=== PATIENT | male | born 1935 | race Caucasian/White ===

== ENCOUNTER 2017-07-06 18:33 | Emergency (ER) | payer OTHER ==
[~2017-07-06] VITALS: Ht 170.2 cm; Wt 80.0 kg
[~2017-07-06 18:33] MED LIST: ACET1TAB49; ALEN35TA22 PO; CARV3.1238 PO; EZET10TA3 PO; LISI20TA11 PO; METF500T4 PO; PSYL1PAC; RISE5TAB; SIMV40TA3 PO; TAMS-14 PO; TIMO5DRO30 BOTH EYES; VIC PO
[2017-07-06] MEDS ORDERED: SOD CHLORIDE 0.9% 100 ML ONE (18:41)
[2017-07-06] MEDS ORDERED: IODIXANOL LOCM 100 ML BTL ONE (18:41)
[2017-07-06] MEDS ORDERED: IODIXANOL LOCM 50 ML BTL ONE (18:41)
[2017-07-06 18:43] VITALS: Ht 170.2 cm; Wt 80.0 kg
--- NOTE | 2017-07-06 18:51 | RADRPT ---
AMENDMENT: 07/06/2017 6:53:08 PM Jesus Bradshaw MD ADDENDUM: Findings discussed with Dr Flores 07/06/2017 18:50 PROCEDURE: CT Brain without contrast. CLINICAL INDICATION: Focal neurological deficit. TECHNIQUE: A CT of the brain was performed on a multislice detector CT scanner utilizing axial sec tions from the skull base through the vertex without contrast. Images were reviewed on a high-resolu I Had Cancer PACS workstation. Exam CTDlvol = 43 mGy and DLP = 860 mGy-cm. One of the following 3 dose red uction techniques were used: Automated exposure control; adjustment of the mA and/or kV according to patient size; or use of iterative reconstruction technique. COMPARISON: None available FINDINGS: There is age appropriate central and peripheral atrophy. There is no midline shift. There is a mod erate degree of supratentorial periventricular and subcortical white matter hypodensities. There is no definite acute stroke. There is no mass lesion. There is no intracranial hemorrhage or abnorma l extra-axial fluid collection. Visualized paranasal sinuses are clear. IMPRESSION: 1. No acute intracranial abnormality. 2. Nonspecific white matter changes most commonly seen with microvascular ischemic disease. RPTAT: [facility] .Jesus Bradshaw MD, Date Time Electronically viewed and signed by .Jesus Bradshaw MD, on 07/06/2017 18:53 .K/
[2017-07-06] MEDS ORDERED: METO25TA7 PO (18:58)
[2017-07-06] MEDS ORDERED: LISI20TA11 PO (18:58)
[2017-07-06] MEDS ORDERED: HYDR-902 PO (18:59)
[2017-07-06] MEDS ORDERED: TAMS0.4C2 PO (18:59)
[2017-07-06] MEDS ORDERED: ATOR40TA68 PO (19:00)
[2017-07-06] MEDS ORDERED: DORZ10DR22 BOTH EYES (19:01)
--- NOTE | 2017-07-06 19:15 | RADRPT ---
AMENDMENT: 07/06/2017 7:25:22 PM Levy Lofton M.D CLINICAL INDICATION: Neurologic deficit PROCEDURE: CTA head and neck. CLINICAL INDICATION: TECHNIQUE: The study was performed utilizing a GE 64-slice multidetector CT scanner. Direct spiral axial sections were obtained through the neck with the use of 85 cc of Isovue 370 nonionic intraven ous contrast material. Coronal and sagittal as well as maximal intensity projection reformations we re obtained. The images were reviewed on a PACS workstation. The CTDI vol is 46.56 mGy and the DLP i s 860.42 mGy-cm. COMPARISON: No prior studies are available for comparison. FINDINGS: CTA neck: The aortic arch is atherosclerotic an otherwise unremarkable and appearance. The origins of the great vessels are intact. Mild calcific plaque and intimal thickening in the carotid bifurcat ions is seen. In addition, calcified plaque is also seen in the distal right cervical internal wells tid artery. Evaluation of the carotid bifurcation regions revealed no evidence for hemodynamically s ignificant stenosis or occlusion. The vertebral arteries are patent bilaterally. The right vertebral artery is dominant. CTA head: The intracranial internal carotid arteries are atherosclerotic. The bilateral internal car otid arteries are otherwise unremarkable in course and caliber. Occlusion of the distal M1 segment o f the left middle cerebral artery is seen which reconstitutes distally. The bilateral anterior and r ight middle cerebral arteries are normal. The anterior communicating artery is intact. origin of the left posterior cerebral artery is seen. The distal vertebral arteries, basilar artery, basil ar tip, and posterior cerebral arteries are normal. No evidence of an aneurysm or vascular malforma tion is seen. No other occlusion or hemodynamically significant stenosis is seen. The visualized dural venous sinuses are patent. IMPRESSION: 1. Occlusion of the distal M1 segment of the left middle cerebral artery which reconstitutes distal ly. 2. No hemodynamically significant stenosis in the carotid circulation. RPTAT: [facility] Results were discussed with Rhett Flores at 07/06/2017 7:12:14 PM Physician Jessica Date Time Electronically viewed and signed by Physician Jessica on 07/06/2017 19:25 /
[2017-07-06 19:17] LABS: BASOPHILS % 0.3 % (0.0-2.0); EOSINOPHILS # 0.1 10^3/ul (0.0-0.5); EOSINOPHILS % 0.5 % (0.0-7.0); HEMATOCRIT 34.2 % (42.0-52.0); HEMOGLOBIN 11.3 g/dl (14.0-18.0); LYMPHOCYTES % 10.5 % (15.0-51.0); MEAN CORPUSCULAR HEMOGLOBIN 29.7 pg (29.0-33.0); MEAN CORPUSCULAR VOLUME 89.8 fl (82.0-101.0); MEAN PLATELET VOLUME 9.8 fl (7.4-10.4); MONOCYTE # 0.6 10^3/ul (0.3-0.9); NEUTROPHILS % 82.3 % (39.0-77.0); PLATELET COUNT 211 10^3/UL (140-415); RED BLOOD COUNT 3.81 10^6/ul (4.70-6.10); RED CELL DISTRIBUTION WIDTH 14.3 % (11.5-14.5); WHITE BLOOD COUNT 9.2 10^3/ul (4.8-10.8)
--- NOTE | 2017-07-06 19:22 | ERA ---
ER Documentation Chief Complaint Date/Time DATE: 07/06/17 TIME: 19:14 Chief Complaint R sided weakness, last known well 12:30 HPI This is an 81-year-old male who presents to the emergency room with possible stroke. History is mostly provided by EMS and later by his . It appears the last time he was seen normal was around noon or 12:30 PM. The patient's states that that is last time she saw him they were both in separate rooms and when she went to find him she found him on the ground. He was minimally responsive and 911 was called. EMS reports that the patient had been moving the left side of his body but not the right and he was nonverbal. Remainder of HPI is very limited. Accu-Chek in the field was normal. The patient was placed in a c-collar via EMS. No history of anticoagulant use. ROS All systems reviewed and are negative except as per history of present illness. Medications Home Meds Reported Medications Metformin Hcl* (Metformin Hcl*) 850 Mg Tablet, 850 MG PO WITH BREAKFAST DINNE, # 60 TAB 07/06/17 [Iron 27MG] No Conflict Check, 1 TAB PO 07/06/17 Aspirin* (Aspirin* EC) 81 Mg Tablet.dr, 81 MG PO DAILY, TAB 07/06/17 Atorvastatin* (Atorvastatin*) 40 Mg Tablet, 40 MG PO QHS, #30 TAB 07/06/17 Tamsulosin Hcl* (Tamsulosin Hcl*) 0.4 Mg Cap.er.24h, 0.4 MG PO DAILY, CAP 07/06/17 Lisinopril* (Lisinopril*) 20 Mg Tablet, 20 MG PO DAILY, #30 TAB 07/06/17 Metoprolol Succinate* (Toprol XL*) 25 Mg Tab.sr.24h, 25 MG PO DAILY, #30 TAB 07/06/17 Discontinued Reported Medications Dorzolamide-Timolol* (Cosopt*) 2%-0.5% - 10 Ml Soln, 1 DROP BOTH EYES BID, BOTTLE 07/06/17 Hydrocodone/Acetaminophen ([place] 10-325 Tablet) 1 Each Tablet, 1 EACH PO Q4 Y for NEEDED, TAB 07/06/17 Timolol Maleate* (Timoptic*) 5 Ml Drops, 5 ML BOTH EYES DAILY 11/30/11 Ezetimibe* (Zetia*) 10 Mg Tablet, 10 MG PO DAILY 11/30/11 Tamsulosin Hcl* (Flomax*) 0.4 Mg Cap.sr.24h, 0.4 MG PO DAILY 11/30/11 Alendronate Sodium (Fosamax) 35 Mg Tablet, 35 MG PO DAILY 11/30/11 Metformin* (Glucophage*) 500 Mg Tab, 500 MG PO DAILY 11/30/11 Carvedilol* (Coreg*) 3.125 Mg Tablet, 3.125 MG PO DAILY 11/30/11 Lisinopril* (Lisinopril*) 20 Mg Tablet, 20 MG PO DAILY 11/30/11 Simvastatin (Simvastatin) 40 Mg Tablet, 40 MG PO DAILY 11/30/11 Acetaminophen/Hydrocodone (Vicodin) 1 Tab Tab, 1 TAB PO Q4H PRN 11/30/11 Psyllium Seed (Hydrocil Instant) 1 Pkt Packet 01/13/10 Acetaminophen/Phenyltolx Cit (Asa Free Analgesic Tablet) 1 Tab Tablet 01/13/10 Risedronate* (Actonel*) 5 Mg Tablet 01/13/10 Allergies Allergies: Coded Allergies: clopidogrel (Verified Allergy, Mild, 07/06/17) PMhx/Soc History of Surgery: Yes (TRIPLE BYPASS 1998) Anesthesia Reaction: No Hx Neurological Disorder: No Hx Respiratory Disorders: No Hx Cardiac Disorders: Yes (HX OF TRIPLE BYPASS, HTN) Hx Psychiatric Problems: No Hx Miscellaneous Medical Probl: Yes (DM, cholesterol, chronic back pain) Hx Alcohol Use: Yes (occasional wine drinker) Hx Substance Use: No Hx Tobacco Use: Yes (chews on cigars) Smoking Status: Former smoker FmHx Family History: diabetes Physical Exam Vitals Vital Signs Date Time Temp Pulse Resp B/P Pulse Ox O2 Delivery O2 Flow Rate FiO2 07/06/17 20:30 55 20 170/108 98 Room Air 07/06/17 20:00 56 22 145/77 100 Room Air 07/06/17 18:43 64 20 147/74 96 Physical Exam General: Nonverbal, protecting her airway Head: Normocephalic, atraumatic. Eyes: Pupils equally reactive, EOM intact ENT: Moist mucous membranes Neck: Supple, no lymphadenopathy remains in c-collar, no midline tenderness or deformities Respiratory: Lungs clear bilaterally, no distress Cardiovascular: RRR, no murmurs, rubs, or gallops Abdominal: Soft, non-tender, non-distended, no peritoneal signs : Deferred MSK: No evidence of blunt trauma, limited movement of all 4 extremities Neurologic: Patient seems to be following very simple commands he has very limited movement of all 4 extremities but does have slight movement to left upper and lower extremity. He has flaccid paralysis of the right upper and lower extremity. He is nonverbal. Skin: No rash, no evidence of blunt trauma to the head chest or extremities Psych: Normal mood Result Diagram: 07/06/17190407/06/171904 Results 24 hrs Laboratory Tests Test 07/06/17 19:05 07/06/17 19:08 White Blood Count 9.210^3/ul Red Blood Count 3.8110^6/ul Hemoglobin 11.3g/dl Hematocrit 34.2% Mean Corpuscular Volume 89.8fl Mean Corpuscular Hemoglobin 29.7pg Mean Corpuscular Hemoglobin Concent 33.0g/dl Red Cell Distribution Width 14.3% Platelet Count 10535^3/UL Mean Platelet Volume 9.8fl Neutrophils % 82.3% Lymphocytes % 10.5% Monocytes % 6.0% Eosinophils % 0.5% Basophils % 0.3% Nucleated Red Blood Cells % 0.0/100WBC Neutrophils # (Manual) 810^3/ul Lymphocytes # 1.010^3/ul Monocytes # 0.610^3/ul Eosinophils # 0.110^3/ul Basophils # 0.010^3/ul Nucleated Red Blood Cells # 0.010^3/ul Prothrombin Time 13.8Sec Prothrombin Time Ratio 1.1 INR International Normalized Ratio 1.06 Activated Partial Thromboplast Time 29.5Sec Sodium Level 137mmol/L Potassium Level 4.6mmol/L Chloride Level 98mmol/L Carbon Dioxide Level 26mmol/L Anion Gap 18 Blood Urea Nitrogen 22mg/dl Creatinine 1.02mg/dl Glucose Level 141mg/dl Hemoglobin A1c 6.5% Calcium Level 9.2mg/dl Creatine Kinase 70IU/L Creatine Kinase Index 0.8 Creatinine Kinase MB (Mass) 0.58ng/ml Troponin I < 0.012ng/ml Bedside Glucose 144mg/dL Current Medications Medications (Trade) Dose Ordered Sig/Elías Route PRN Reason Start Time Stop Time Status Last Admin Dose Admin IV Flush 10 ml 10 ml STK-MED ONCE .ROUTE 07/06/17 18:41 07/06/17 18:53 DC 07/06/17 19:10 Sodium Chloride (NS) 100 ml @ ud STK-MED ONCE .ROUTE 07/06/17 18:41 07/06/17 18:59 DC 07/06/17 19:10 Iodixanol (Visipaque Locm) 100 ml STK-MED ONCE .ROUTE 07/06/17 18:41 07/06/17 18:59 DC 07/06/17 19:10 Iodixanol (Visipaque Locm) 50 ml STK-MED ONCE .ROUTE 07/06/17 18:41 07/06/17 18:59 DC 07/06/17 19:10 Aspirin (Aspirin) 300 mg ONCE ONCE CO 07/06/17 19:30 07/06/17 19:31 DC 07/06/17 20:26 Procedures/MDM EKG, MONITORS, & DIAGNOSTIC IMAGING: EKG: I reviewed and interpreted a 12-lead EKG. Rhythm: Normal sinus rhythm Ectopy: None Arrhythmia: None Intervals: No abnormalities ST segments: No elevations or depressions T waves: No contiguous inversions Interpretation: No acute cardiac ischemia Chest x-ray: I reviewed and interpreted a 1 view of the chest Mediastinum: No enlargement Cardiac silhouette: No cardiomegaly Airspace: Clear lung kinsey bilaterally without evidence of pneumothorax Bones: No evidence of fracture Interpretation: No acute cardiopulmonary process CT Brain: No evidence of acute intracranial process per radiology wet read CTA Head and Neck: Left MCA occlusion per radiology wet read CT cervical spine: IMPRESSION: 1. No evidence for acute fracture or dislocation. 2. 4 mm disk osteophyte complex at C5-C6, with associated mild appearing bony central canal stenosis. Mild disk osteophyte complexes at other levels through the mid-cervical spine, with minimal appearing central canal stenosis at C6-C7. 3. Uncovertebral hypertrophy from C3-C4 through C7-T1. Multilevel facet hypertrophic changes, moderate to severe and severe as noted from C2-C3 through C4-C5. 4. Resulting foraminal stenosis, with moderate to severe and severe involvement at each level as described from C3-C4 through C6-C7. LAB INTERPRETATION: No thrombocytopenia, normal hemoglobin MEDICAL DECISION MAKING: The patient presents with signs and symptoms very concerning for a left MCA stroke. Alternative diagnosis includes trauma, ACS, syncope and seizure. Upon arrival the patient is protecting his airway and does not require intubation. A stroke code was initiated ER COURSE: Stroke assessment and timing: Onset of symptoms: Approximately 12 or 12:30 PM Arrival to ED: 1832 Stroke code activation: [address] scan: [address]: 1899 Initial neurology evaluation: 1900 Conversation(s) with neurology: 1844, 1915 NIHSS: 18 TPA decision-making: The patient is not a TPA candidate given duration of symptoms greater than 4-1/2 hours Stroke neurologist on-call: Dr. Wall Critical Care Note: Total time: 47 mins Indication/Organ System Threat: Acute neurologic deficit and stroke code activation that requires emergent evaluation and assessment to prevent neurologic compromising collapse. I spent the above amount of critical care time with the patient, not including billable procedures. This included chart review, consultations, repeat bedside evaluations, and titration of appropriate medications to prevent cardiopulmonary or respiratory collapse. Based on the patient's left MCA occlusion window within 8 hours he is a transfer candidate for interventional procedure and possible clot retrieval. The patient does not require intubation prior to transfer as he is protecting his airway I spoke to Dr. Mckeon at [facility]. He agrees with aspirin and will accept the patient. I spoke to him at 1923 CT C-spine negative. C-spine cleared and c-collar removed. Patient with mild interval improvement. I kept the patient and/or family informed of laboratory and diagnostic imaging results throughout the emergency room course. DISPOSITION PLAN: Transfer to [facility] CONSULTATION: Accepting care team and consultations: I discussed the current laboratory data, diagnostic imaging and emergency care provided. Admitting team: Dr. Mckeon Admitting team indication: Insurance directed I was able initially speak to [facility] at 1917 Critical care transport arrival at 2034, departure at 2054 Departure Diagnosis: Primary Impression: Acute ischemic left MCA stroke Condition: Critical SATURNINO GARCIA MD Jul 06, 2017 19:22
--- NOTE | 2017-07-06 19:25 | RADRPT ---
PROCEDURE: CTA head and neck. CLINICAL INDICATION: Neurologic deficit TECHNIQUE: The study was performed utilizing a GE 64-slice multidetector CT scanner. Direct spiral axial sections were obtained through the neck with the use of 85 cc of Isovue 370 nonionic intraven ous contrast material. Coronal and sagittal as well as maximal intensity projection reformations we re obtained. The images were reviewed on a PACS workstation. The CTDI vol is 46.56 mGy and the DLP i s 860.42 mGy-cm. COMPARISON: No prior studies are available for comparison. FINDINGS: CTA neck: The aortic arch is atherosclerotic an otherwise unremarkable and appearance. The origins of the great vessels are intact. Mild calcific plaque and intimal thickening in the carotid bifurcat ions is seen. In addition, calcified plaque is also seen in the distal right cervical internal wells tid artery. Evaluation of the carotid bifurcation regions revealed no evidence for hemodynamically s ignificant stenosis or occlusion. The vertebral arteries are patent bilaterally. The right vertebral artery is dominant. CTA head: The intracranial internal carotid arteries are atherosclerotic. The bilateral internal car otid arteries are otherwise unremarkable in course and caliber. Occlusion of the distal M1 segment o f the left middle cerebral artery is seen which reconstitutes distally. The bilateral anterior and r ight middle cerebral arteries are normal. The anterior communicating artery is intact. origin of the left posterior cerebral artery is seen. The distal vertebral arteries, basilar artery, basil ar tip, and posterior cerebral arteries are normal. No evidence of an aneurysm or vascular malforma tion is seen. No other occlusion or hemodynamically significant stenosis is seen. The visualized dural venous sinuses are patent. IMPRESSION: 1. Occlusion of the distal M1 segment of the left middle cerebral artery which reconstitutes distal ly. 2. No hemodynamically significant stenosis in the carotid circulation. RPTAT: [facility] Results were discussed with Rhett Flores at 07/06/2017 7:12:14 PM Physician Jessica Date Time Electronically viewed and signed by Giacomo Lofton Physician on 07/06/2017 19:24 /
--- NOTE | 2017-07-06 19:28 | RADRPT ---
PROCEDURE: CT Cervical Spine without contrast. CLINICAL INDICATION: Stroke, focal neurologic deficit TECHNIQUE: Multiple axial cuts through the cervical spine with coronal and sagittal reformats were obtained without contrast. The calculated radiation dose measures 471 mGy centimeters. The CTDI juan miguel sures 22 mGy. One or more of the following dose reduction techniques were used: Automated exposure control. Adjustment of the mA and/or kV according to patient size. Use of iterative reconstruction technique. COMPARISON: No prior studies are available for comparison. FINDINGS: There is a normal cervical lordosis. There is no evidence of subluxation. There is normal height of the vertebral bodies. There is moderate to severe disk space narrowing at C5-C6 and C6-C7.. There is no bone destruction or sclerosis. There is no dislocation or acute fracture identified. There is an incomplete posterior C1 arch, which may be developmental.. The atlantoaxial articulation demonstrates mild to moderate degenerative change. There is normal cr aniocervical alignment. C2-3: There is no gross disk abnormality. There is moderate to severe right and moderate left facet hypertrophy. There is no bony central canal stenosis. There is no significant bony foraminal sten osis.. C3-4: There is a mild broad-based disk protrusion, 3 mm, and bilateral uncovertebral hypertrophy. T here is moderate to severe left and mild to moderate right facet hypertrophy. There is no bony cent ral canal stenosis. There is moderate to severe left and moderate right bony foraminal stenosis.. C4-5: There is a mild broad-based disk protrusion, and bilateral uncovertebral hypertrophy. There i s severe right and moderate left facet hypertrophy. There is no bony central canal stenosis. There is severe right and moderate left bony foraminal stenosis.. C5-6: There is a mild to moderate disk osteophyte complex, 4 mm. There is bilateral uncovertebral h ypertrophy. There is moderate bilateral facet hypertrophy. There is mild bony central canal stenos is. There is mild to moderate left and moderate to severe right bony foraminal stenosis.. C6-7: There is a mild disk osteophyte complex and bilateral uncovertebral hypertrophy. There is mi ld to moderate bilateral facet hypertrophy. There is minimal appearing bony central canal stenosis. There is severe left and moderate to severe right bony foraminal stenosis.. C7-T1: There is a minimal disk osteophyte complex and bilateral uncovertebral hypertrophy. There is mild to moderate bilateral facet hypertrophy. There is no bony central canal stenosis. There is m oderate right and mild-moderate left bony foraminal stenosis.. There is no abnormal paravertebral soft tissue mass. IMPRESSION: 1. No evidence for acute fracture or dislocation. 2. 4 mm disk osteophyte complex at C5-C6, with associated mild appearing bony central canal stenosis . Mild disk osteophyte complexes at other levels through the mid-cervical spine, with minimal appea ring central canal stenosis at C6-C7. 3. Uncovertebral hypertrophy from C3-C4 through C7-T1. Multilevel facet hypertrophic changes, mode rate to severe and severe as noted from C2-C3 through C4-C5. 4. Resulting foraminal stenosis, with moderate to severe and severe involvement at each level as de scribed from C3-C4 through C6-C7. RPTAT: [facility] .Rachid Garcia MD, Date Time Electronically viewed and signed by .Rachid Garcia MD, on 07/06/2017 19:27 .T/
[2017-07-06] MEDS ORDERED: ASPIRIN 300 MG SUPP PR ONE (19:30)
[2017-07-06] MEDS ORDERED: ASPI-664 PO (19:38)
[2017-07-06] MEDS ORDERED: IRON 27MG PO (19:39)
[2017-07-06] MEDS ORDERED: METF850T PO (19:41)
[2017-07-06 19:43] LABS: ANION GAP 18 (8-16); BLOOD UREA NITROGEN 22 mg/dl (7-20); CALCIUM 9.2 mg/dl (8.4-10.2); CARBON DIOXIDE 26 mmol/L (21-31); CHLORIDE 98 mmol/L (97-110); CREATINE KINASE 70 IU/L (23-200); CREATININE 1.02 mg/dl (0.61-1.24); GLUCOSE 141 mg/dl (70-220); POTASSIUM 4.6 mmol/L (3.5-5.1); SODIUM 137 mmol/L (135-144)
[2017-07-06 19:54] LABS: INR 1.06; PROTIME 13.8 Sec (12.2-14.2); PT RATIO 1.1
[2017-07-06 19:55] LABS: PARTIAL THROMBOPLASTIN TIME 29.5 Sec (25.0-35.0)
[2017-07-06 19:56] LABS: CK-MB 0.58 ng/ml (0.0-2.4)
[2017-07-06 19:58] LABS: TROPONIN-I < 0.012 ng/ml (0.00-0.12)
--- NOTE | 2017-07-06 20:11 | STROKE ---
Date/Time of Note Date/Time of Note DATE: 07/06/17 TIME: 19:39 Patient Information General Patient location: emergency Arrival Date Age 81 Gender male Weight 80 kg POC Glucose Glucose Result Bedside Glucose - 72 Hours Test 07/06/17 19:08 Bedside Glucose 144mg/dL (70-220) Vital Signs Vital Signs Vital Signs Date Time Temp Pulse Resp B/P Pulse Ox O2 Delivery O2 Flow Rate FiO2 07/06/17 18:43 64 20 147/74 96 Patient History Current Medications Allergies: Coded Allergies: clopidogrel (Verified Allergy, Mild, 07/06/17) Labs Hematology Labs Hematology Test 07/06/17 19:05 White Blood Count 9.210^3/ul (4.8-10.8) Red Blood Count 3.8110^6/ul (4.70-6.10) Hemoglobin 11.3g/dl (14.0-18.0) Hematocrit 34.2% (42.0-52.0) Mean Corpuscular Volume 89.8fl (82.0-101.0) Mean Corpuscular Hemoglobin 29.7pg (29.0-33.0) Mean Corpuscular Hemoglobin Concent 33.0g/dl (32.0-37.0) Red Cell Distribution Width 14.3% (11.5-14.5) Platelet Count 84098^3/UL (140-415) Mean Platelet Volume 9.8fl (7.4-10.4) Neutrophils % 82.3% (39.0-77.0) Lymphocytes % 10.5% (15.0-51.0) Monocytes % 6.0% (0.0-11.0) Eosinophils % 0.5% (0.0-7.0) Basophils % 0.3% (0.0-2.0) Nucleated Red Blood Cells % 0.0/100WBC (0.0-0.0) Neutrophils # (Manual) 810^3/ul (1.7-7.5) Lymphocytes # 1.010^3/ul (0.8-2.9) Monocytes # 0.610^3/ul (0.3-0.9) Eosinophils # 0.110^3/ul (0.0-0.5) Basophils # 0.010^3/ul (0.0-0.1) Nucleated Red Blood Cells # 0.010^3/ul (0.0-0.0) Chemistry Labs Chemistry Test 07/06/17 19:08 Bedside Glucose 144mg/dL (70-220) History & Physical Patient History Notes Pt Hx Reviewed History of Present Illness 81yo M presents with acute onset right sided weakness and inability to speak. Patient was found down and last seen normal at noon. Review of Systems All Other Systems: Reviewed and Negative (patient unable to provide due to clinical condition) NIH Stroke Scale NIH Stroke Scale 1A - Level of Conciousness: 0 - Alert keenly [id number] LOC Questions: 2 - Answers no [id number] - LOC Commands: 2 - Performs neither task2 - Best Gaze: 0 - Normal3 - Visual: 0 - No visual loss4 - Facial Palsy: 1 - Partial [id number] - Motor Arm - Left: 0 - No [id number] - Motor Arm - Right: 1 - Drift 6A - Motor Leg - Left: 4 - No [id number] - Motor Leg - Right: 4 - No movement 7 - Limb Ataxia: 0 - Absent9 - Best Language: 3 - Mute or global aphasia Dysarthria: 2 - [id number] - Extinction and inattentio: 0 - No abnormalityTotal Score: 19 Date/Time Recorded DATE: 07/06/17 TIME: 19:15 Submitted By Marianne Wall t-PA Imaging Review Imaging Reviewed: Yes Date/Time Imaging Reviewed DATE: 07/06/17 TIME: 19:[address] Head- no acute changes; CTA of the head- left M1 occlusion seen, confirmed per radiologist verbal report to ED physician t-PA Administration Recommendation: No Weight 80 kg Recommedation submitted by Marianne Wall Reason t-PA not Recommended outside time window t-PA Not Recommended Date/Time 07/06/17 18:44 Recommendations Impression Diagnosis acute ischemic stroke of the left middle cerebral artery Recommendation 81yo M presents with acute onset right sided weakness and inability to speak. Neurological exam is notable for patient being mute, with mild right facial weakness, right arm drift, and not moving bilateral lower extremities. CT Head is unremarkable, and CTA Head demonstrates left M1 occlusion. I believe the patient is having an acute ischemic stroke of the left middle cerebral artery. Patient is not a TPA candidate due to being outside the time window. I recommend transfer for possible neurointerventional treatment and both aspirin 81mg and Plavix 75mg daily for 3 weeks, then consider switching to a single antiplatelet regimen. I recommend further workup to include MRI Brain without gadolinium and transthoracic echocardiogram. Diagnostic Labs: Lipid Proile Hgb A1C CMP CBC w/Diff Coags Therapy: Physical Therapy Speech Therapy Occupational Therapy Misc. Recommendations: Bedside Swallow Evaluation Pnumatic Compression Devices Stroke Education Smoking Education MARIANNE WALL Jul 06, 2017 19:50
--- NOTE | 2017-07-06 20:14 | RADRPT ---
PROCEDURE: Portable chest x-ray. CLINICAL INDICATION: 81 years of age, male. Possible stroke. TECHNIQUE: Portable AP view of the chest. COMPARISON: Chest x-ray November 30, 2011 FINDINGS: Sternal wires and mediastinal clips from previous cardiac surgery. Atherosclerotic calcification an d tortuosity of the thoracic aorta. Borderline heart size. Mediastinal contours are similar. There is elevation of the left diaphragm with left lung base opacity that is similar to prior exam a nd likely represents scar or chronic atelectasis. Mild right lung base opacity likely represents at electasis. Lungs are otherwise clear. Negative for pleural effusion or pneumothorax. No acute bony abnormality. IMPRESSION: Elevation of the left diaphragm with chronic left lung base opacity that is unchanged from prior exa m is likely due to scarring or chronic atelectasis. Negative for evidence of an acute chest process . RPTAT: HCTS Physician Ana Luisa Date Time Electronically viewed and signed by Kevan Bass Physician on 07/06/2017 20:13 /
[2017-07-06 20:30] VITALS: BP 170/108; PULSE 55; RESP 20
== END 2017-07-06 20:55 | disposition short-term general hospital (02) ==
LOC: E/R 18:33
DX: I63.412 Cerebral infarction due to embolism of left middle cerebral artery (principal); I10 Essential (primary) hypertension; E11.9 Type 2 diabetes mellitus without complications; Z79.82 Long term (current) use of aspirin; Z79.84 Long term (current) use of oral hypoglycemic drugs; Z87.891 Personal history of nicotine dependence
CPT/HCPCS: 36415; 70450; 70496; 70498; 71010; 72125; 80048; 82550; 82553; 82962; 83036; 84484; 85025; 85610; 85730; 93005; 99291; Q9967

== ENCOUNTER 2017-08-12 14:57 | Inpatient (IN) | END 2017-08-18 19:45 | DRG 872 | DX: A41.59 Other Gram-negative sepsis (principal); N17.9 Acute kidney failure, unspecified; I82.403 Acute embolism and thrombosis of unspecified deep veins of lower extremity, bilateral; E11.51 Type 2 diabetes mellitus with diabetic peripheral angiopathy without gangrene; I48.92 Unspecified atrial flutter; I42.9 Cardiomyopathy, unspecified; B35.6 Tinea cruris; I69.351 Hemiplegia and hemiparesis following cerebral infarction affecting right dominant side; I48.91 Unspecified atrial fibrillation; L03.319 Cellulitis of trunk, unspecified; J98.11 Atelectasis; I69.391 Dysphagia following cerebral infarction; I69.320 Aphasia following cerebral infarction; E87.5 Hyperkalemia; Z79.01 Long term (current) use of anticoagulants; I25.10 Atherosclerotic heart disease of native coronary artery without angina pectoris; Z93.1 Gastrostomy status; Z95.1 Presence of aortocoronary bypass graft; Z87.891 Personal history of nicotine dependence; D64.9 Anemia, unspecified; N40.1 Benign prostatic hyperplasia with lower urinary tract symptoms; R33.8 Other retention of urine; Z16.24 Resistance to multiple antibiotics; Z22.322 Carrier or suspected carrier of Methicillin resistant Staphylococcus aureus ==

== ENCOUNTER 2018-01-06 19:43 | Emergency (ER) | END 2018-01-07 03:36 | disposition home or self-care (01) ==

== ENCOUNTER 2018-05-28 02:41 | Emergency (ER) | END 2018-05-28 06:54 | disposition home or self-care (01) ==

== ENCOUNTER 2018-06-04 08:32 | Inpatient (IN) | END 2018-06-04 17:35 | disposition home health service (06) | DRG 699 ==

== ENCOUNTER 2018-06-08 14:14 | Emergency (ER) | END 2018-06-08 15:46 | disposition home or self-care (01) ==

== ENCOUNTER 2018-08-30 13:16 | Inpatient (IN) | END 2018-09-11 18:45 | DRG 698 ==

== ENCOUNTER → 2018-09-22 | Emergency (ER) | END | disposition home or self-care (01) ==

== ENCOUNTER 2018-09-28 12:08 | Observation (INO) | END 2018-09-29 18:40 | disposition home health service (06) ==

== ENCOUNTER 2018-11-28 17:56 | Observation (INO) | payer OTHER ==
[~2018-11-28] VITALS: Ht 167.6 cm; Wt 62.0 kg
[~2018-11-28 17:56] MED LIST changes: -ACET1TAB49; +ALBU2.5V3 NEB; -ALEN35TA22 PO; +AMIO200T4 PO; +AMOX1TAB10 PO; +APIX5TAB PO; +ATOR40TA68 PO; +BUPR-75 PO; -CARV3.1238 PO; +CARV3.1260 PO; +CHOL100062 PO; +CITA40TA6 PO; +DOCU50LI23 PO; -EZET10TA3 PO; +FOLI-49 PO; +HYDR-4011 PO; +HYDR2TAB3 PO; +LACT1CAP47 PO; +LISI-471 PO; -LISI20TA11 PO; +LORA10TA3 PO; +MELA5TAB21 PO; -METF500T4 PO; +MYCO250C3 PO; +OMEP20CA16 PO; -PSYL1PAC; -RISE5TAB; +SENN8.8S5 PO; -SIMV40TA3 PO; -TAMS-14 PO; -TIMO5DRO30 BOTH EYES; -VIC PO
--- NOTE | 2018-11-28 18:24 | ERD ---
ER Documentation Chief Complaint Chief Complaint blood in urine since yesterday after moreno being changed HPI 83-year-old male history of atrial fibrillation on Eliquis, CVA with residual deficit, coronary artery disease, congestive heart failure, hyperlipidemia, psoriasis and chronic urinary retention status post suprapubic catheter placement presents to the ED with gross hematuria and abdominal pain. After his regularly scheduled, monthly, suprapubic catheter replacement by home health yesterday he developed bloody drainage into his Moreno bag and over the last several hours has been having worsening, severe, sharp and nonradiating lower abdominal pain. No nausea, vomiting, diarrhea or constipation. No relieving or exacerbating factors. Denies chest pain, palpitations, shortness of breath or leg pain. No fevers or chills. ROS All systems reviewed and are negative except as per history of present illness. Medications Home Meds Active Scripts Mupirocin* (Bactroban*) 2% -22 Gram Oint...g., 1 APPLIC TOP BID for 14 Days Prov:DOMINIC CERDA 11/30/18 Ertapenem Sodium (Invanz) 1 Gm Vial.port, 1 GM IV Q24H for 13 Days Next outpatient dose due 12/01/18 Prov:DOMINIC CERDA 11/30/18 Lactobacillus Acidophilus (Probiotic) 1 Each Capsule, 1 CAP PO BID for 30 Days, CAP Prov:DOMINIC CERDA 11/30/18 Reported Medications Mycophenolate Mofetil* (Cellcept*) 250 Mg Capsule, 250 MG PO BID, CAP 08/30/18 Albuterol Sulfate* (Albuterol Sulfate* Neb) 0.083%-3 Ml Neb, 2.5 MG NEB BID PRN for WHEEZING AND SOB, #30 VIAL 08/30/18 Folic Acid* (Folic Acid*) 1 Mg Tablet, 1 MG PO DAILY, TAB 06/08/18 Cholecalciferol* (Vitamin D3*) 1,000 Unit Tablet, 1000 UNIT PO DAILY, TAB 06/08/18 Bupropion Hcl* (Wellbutrin XL*) 150 Mg Tab.sr.24h, 150 MG PO NEEDED, TAB.SA 06/08/18 Melatonin (Melatonin) 5 Mg Tab.ir.er, 5 MG PO QHS 06/08/18 Sennosides* (Senna* Liq) 8.8 Mg/5 Ml Syrup, 5 ML PO QAM, BOTTLE 06/08/18 Docusate Sodium* (Docusate Sodium* Liq) 50 Mg/5 Ml Liquid, 50 MG PO QAM, ML 06/08/18 Hydrocodone/Acetaminophen ([place] 5-325 Tablet) 1 Each Tablet, 1 EACH PO NEEDED, TAB 06/08/18 Loratadine* (Loratadine*) 10 Mg Tablet, 10 MG PO DAILY, #30 TAB 06/08/18 Atorvastatin* (Atorvastatin*) 40 Mg Tablet, 40 MG PO QHS, #30 TAB 06/08/18 Apixaban* (Eliquis*) 5 Mg Tablet, 5 MG PO BID, TAB 06/08/18 Carvedilol* (Carvedilol*) 3.125 Mg Tablet, 3.125 MG PO BID, #60 TAB HOLD PULSE<60 06/08/18 Amiodarone Hcl* (Amiodarone Hcl*) 200 Mg Tablet, 200 MG PO DAILY, #30 TAB 06/08/18 Citalopram Hydrobromide* (Citalopram Hydrobromide*) 40 Mg Tablet, 40 MG PO DAILY, #30 TAB 06/08/18 Omeprazole* (Omeprazole*) 20 Mg Capsule.dr, 20 MG PO DAILY, #30 CAP 06/08/18 Discontinued Reported Medications Hydromorphone Hcl (Dilaudid) 2 Mg Tab, 2 MG PO DAILY PRN for SEVERE PAIN LEVEL 7-08/30/18 Lisinopril* (Lisinopril*) 20 Mg Tablet, 20 MG PO DAILY, #30 TAB 08/30/18 Discontinued Scripts Amoxicillin/Potassium Clav (Amox-Clav 875-125 mg Tablet) 875-125 mg Tab, 875 MG PO BID for 9 Days, #18 TAB Prov:AKSHAT SELF MD 09/29/18 Allergies Allergies: Coded Allergies: clopidogrel (Unverified Allergy, Mild, 09/28/18) PMhx/Soc Reviewed in chart. As per HPI. Lives with family. History of Surgery: Yes (BY PASS ,SUPRAPUBIC CATH PLACEMENT) Anesthesia Reaction: No Hx Neurological Disorder: No Hx Respiratory Disorders: No Hx Cardiac Disorders: Yes (MT BY PASS SURGERY) Hx Psychiatric Problems: No Hx Miscellaneous Medical Probl: Yes (cva , a-fib , cva , posoruasis cad, s/p CABG hematuria .) Hx Alcohol Use: No Hx Substance Use: No Hx Tobacco Use: No FmHx No family history relevant to presenting complaint Physical Exam Vitals Vital Signs Date Temp Pulse Resp B/P (MAP) Pulse Ox O2 O2 Flow FiO2 Time Delivery Rate 11/28/18 98.8 83 18 92/62 (72) 96 20:07 11/28/18 98.8 42 18 115/68 92 18:15 (84) Physical Exam Const: Elderly, severe distress due to pain. Head: Atraumatic Eyes: Normal Conjunctiva ENT: Normal External Ears, Nose and Mouth. Neck: Full range of motion. No JVD. Resp: Breath sounds are equal and clear to auscultation bilaterally Cardio: Regular rate and rhythm, no murmurs Abd: Soft, diffuse, generalized tenderness that localizes to the suprapubic area. Mild distention. Bowel sounds are present. No rebound or guarding. : Moreno catheter bag with dark blood. Suprapubic catheter site without erythema, induration or drainage Skin: No petechiae or rashes Back: No midline or flank tenderness Ext: No cyanosis, or edema Neur: Awake and alert Psych: Anxious but not depressed. Result Diagram: 11/30/18 0536 11/30/18 0536 Results 24 hrs Laboratory Tests Test 11/28/18 18:18 11/28/18 20:04 White Blood Count 9.6 10^3/ul Red Blood Count 3.32 10^6/ul Hemoglobin 9.3 g/dl Hematocrit 29.1 % Mean Corpuscular Volume 87.7 fl Mean Corpuscular Hemoglobin 28.0 pg Mean Corpuscular Hemoglobin Concent 32.0 g/dl Red Cell Distribution Width 17.4 % Platelet Count 330 10^3/UL Mean Platelet Volume 9.6 fl Immature Granulocytes % 0.500 % Neutrophils % 79.2 % Lymphocytes % 11.0 % Monocytes % 7.7 % Eosinophils % 1.3 % Basophils % 0.3 % Nucleated Red Blood Cells % 0.0 /100WBC Immature Granulocytes # 0.050 10^3/ul Neutrophils # 7.6 10^3/ul Lymphocytes # 1.1 10^3/ul Monocytes # 0.7 10^3/ul Eosinophils # 0.1 10^3/ul Basophils # 0.0 10^3/ul Nucleated Red Blood Cells # 0.0 10^3/ul Sodium Level 136 mmol/L Potassium Level 5.3 mmol/L Chloride Level 99 mmol/L Carbon Dioxide Level 28 mmol/L Anion Gap 9 Blood Urea Nitrogen 30 mg/dl Creatinine 1.23 mg/dl Est Glomerular Filtrat Rate mL/min mL/min Glucose Level 94 mg/dl Calcium Level 9.3 mg/dl Urine Color RED Urine Clarity CLOUDY Urine pH 7.0 Urine Specific [place] 1.011 Urine Ketones TRACE mg/dL Urine Nitrite NEGATIVE mg/dL Urine Bilirubin NEGATIVE mg/dL Urine Urobilinogen NEGATIVE mg/dL Urine Leukocyte Esterase 1+ Priti/ul Urine Microscopic RBC > 182 /HPF Urine Microscopic WBC > 182 /HPF Urine Bacteria FEW /HPF Urine Hemoglobin 3+ mg/dL Urine Glucose NEGATIVE mg/dL Urine Total Protein 3+ mg/dl Current Medications Medications Dose Sig/Elías Start Time Status Last (Trade) Ordered Route PRN Stop Time Admin Dose Reason Admin Fentanyl 25 mcg ONCE ONCE 11/28/18 DC 11/28/18 (Sublimaze) IV 19:00 18:47 11/28/18 19:01 Fentanyl 25 mcg ONCE ONCE 11/28/18 DC 11/28/18 (Sublimaze) IV 19:30 19:18 11/28/18 19:31 Procedures/MDM DOCUMENTS REVIEWED: ED nurse, prior ED, prior records MEDICAL DECISION MAKIN-year-old male history of atrial fibrillation on Eliquis, CVA with residual deficit, coronary artery disease, congestive heart failure, hyperlipidemia, psoriasis and chronic urinary retention requiring suprapubic catheter presents to the ED with gross hematuria and abdominal pain CBC to evaluate for leukocytosis, anemia and thrombocytopenia is significant for H/H of 9.3/29.1 which is actually improved from 8.3/27.1 on 09/29. Chemistry significant for elevated BUN/creatinine consistent with prior results and borderline hyperkalemia but no other electrolyte abnormalities. Urinalysis is grossly bloody with numerous RBCs and WBCs. Rocephin 1 g IV piggyback pending culture. Patient presents with gross hematuria complicated by anticoagulation with malfunctioning suprapubic catheter resulting in urinary retention. Patient required multiple doses of IV opiates in the ED for pain management. Patient was evaluated in the ED by Dr. Bejjani and suprapubic catheter was changed. Recommends admission for antibiotics pending cultures and observation for further bleeding. Abdominal pain secondary to urinary retention and urinary tract infection, improved significantly post suprapubic catheter change. No rebound, guarding, signs of peritonitis or an acute intra-abdominal process including but not limited to appendicitis, diverticulitis, abdominal aortic aneu rysm and bowel obstruction hence advanced imaging is not indicated. No criteria for systemic inflammatory response syndrome or sepsis. Patient's initial heart rate of 42 bpm in triage is noted and likely an error as in the ED his initial heart rate was 82. Admit to med/surg for further evaluation and management. CALLS/CONSULTS: Time: 18:35, Dr. Trevino. Will consult in the emergency departm ent. PATIENT CARE TRANSITIONED: Time: 20:48, Dr. Mario. Counseled patient and family regarding diagnosis, diagnostic results and plan for admission. Departure Diagnosis: Primary Impression: Hematuria Hematuria type: gross Qualified Codes: R31.0 - Gross hematuria Additional Impressions: Acute urinary retention Suprapubic abdominal pain History of CVA with residual deficit Chronic atrial fibrillation Chronic kidney disease Chronic kidney disease stage: unspecified stage Qualified Codes: N18.9 - Chronic kidney disease, unspecified Anticoagulated Anemia Anemia type: unspecified type Qualified Codes: D64.9 - Anemia, unspecified Condition: Serious JUDITH PATTERSON MD Nov 28, 2018 18:24
[2018-11-28] MEDS ORDERED: FENTAnyl 50 MCG/ML VIAL IV ONE ×2 (19:00→19:30)
--- NOTE | 2018-11-28 20:12 | CONS ---
Date/Time of Note Date/Time of Note DATE: 11/28/18 TIME: 19:59 Assessment/Plan Assessment/Plan Assessment/Plan 83-year-old male well-known to me from before. Has a very large prostate and urinary retention and contractures of the lower extremities. Prior catheterization through his urethra was complicated multiple times by having the balloon of the catheter inflated into the urethra. Therefore it was decided to put the suprapubic tube for him. The suprapubic tube was placed in and I did change it the first time and then had the home health nurse change it for him monthly. It appears the nurse changed it yesterday and he was having some bleeding and today he was in severe pain so his brought him to the emergency room. I tried first to irrigate the catheter that he had but the fluid that I pushed in I was not able to aspirated back. Therefore I decided to change the suprapubic tube and as soon as I pulled the tube out urine came out of the bladder. I then prepped the suprapubic area and inserted a new 22 [place] 10 cc balloon North I irrigated the new catheter and the return was blood-tinged. Therefore I would recommend to keep him for observation overnight and then if the urine is clear in the morning he may be discharged. Result Diagram: 11/28/188 11/28/188 Results 24hrs Laboratory Tests Test 11/28/18 18:18 White Blood Count 9.6 # Red Blood Count 3.32 L Hemoglobin 9.3 L Hematocrit 29.1 L Mean Corpuscular Volume 87.7 Mean Corpuscular Hemoglobin 28.0 L Mean Corpuscular Hemoglobin Concent 32.0 Red Cell Distribution Width 17.4 H Platelet Count 330 # Mean Platelet Volume 9.6 Immature Granulocytes % 0.500 H Neutrophils % 79.2 H Lymphocytes % 11.0 L Monocytes % 7.7 Eosinophils % 1.3 Basophils % 0.3 Nucleated Red Blood Cells % 0.0 Immature Granulocytes # 0.050 H Neutrophils # 7.6 H Lymphocytes # 1.1 Monocytes # 0.7 Eosinophils # 0.1 Basophils # 0.0 Nucleated Red Blood Cells # 0.0 Sodium Level 136 Potassium Level 5.3 H Chloride Level 99 Carbon Dioxide Level 28 Anion Gap 9 Blood Urea Nitrogen 30 H Creatinine 1.23 Est Glomerular Filtrat Rate mL/min Glucose Level 94 Calcium Level 9.3 Consultation Date/Type/Reason Admit Date/Time Date of Consultation: Nov 28, 2018 Type of Consult Urology Reason for Consultation Gross hematuria Requesting Provider: JUDITH PATTERSON MD Hx of Present Illness 83-year-old male well-known to me from before. Has a very large prostate and urinary retention and contractures of the lower extremities. Prior catheterization through his urethra was complicated multiple times by having the balloon of the catheter inflated into the urethra. Therefore it was decided to put the suprapubic tube for him. The suprapubic tube was placed in and I did change it the first time and then had the home health nurse change it for him monthly. It appears the nurse changed it yesterday and he was having some bleeding and today he was in severe pain so his brought him to the emergency room. Constitutional: other (Complains of pain) Eyes: no complaints ENT: no complaints Respiratory: No shortness of breath Cardiovascular: No chest pain Gastrointestinal: pain Genitourinary: hematuria Musculoskeletal: restricted range of motion (Contracture of lower extremities) Skin: no complaints Neurologic: focal-weakness (Right hemiplegia) Endocrine: no complaints Past Medical History Medical History: coronary artery disease, diabetes, high cholesterol, h ypertension, urinary tract infection, other (Deep vein thrombosis, peripheral vascular disease and history of stroke with right hemiplegia) Allergies: Coded Allergies: clopidogrel (Unverified Allergy, Mild, 09/28/18) Past Surgical History Past Surgical Hx: coronary bypass surgery, other (Insertion of suprapubic tube) Social History Alcohol Use: none Smoking Status: Former smoker Exam/Review of Systems Vital Signs Vitals Vital Signs Date Temp Pulse Resp B/P (MAP) Pulse Ox O2 O2 Flow FiO2 Time Delivery Rate 11/28/18 98.8 42 18 115/68 92 18:15 (84) Exam Constitutional: alert Psych: other (Complains of pain) Head: normocephalic Eyes: nl conjunctiva Neck: supple, non-tender Respiratory: normal air movement; No wheezing Cardiovascular: No jugular venous distention (JVD) Gastrointestinal: soft, other (Suprapubic pain) Genitourinary - Male: other (Suprapubic tube that is draining bloody urine.) Extremities: other (Right hemiplegia and contractures of the lower extremities); No calf tenderness Neurological: focal weakness (Right hemiplegia) MARTINA BOOKER MD Nov 28, 2018 20:10
[2018-11-28] MEDS ORDERED: ONDANSETRON 4 MG INJ IV PRN (21:30)
[2018-11-28] MEDS ORDERED: ACETAMINOPHEN 325 MG TAB PO PRN (21:30)
[2018-11-28 22:40] VITALS: BP 102/62; PULSE 94; RESP 18
[2018-11-28 23:28] VITALS: Ht 167.6 cm; Wt 62.0 kg
[2018-11-29] MEDS ORDERED: ACETAMINOPHEN 325 MG TAB PO PRN
[2018-11-29] MEDS ORDERED: ONDANSETRON 4 MG INJ IV PRN
[2018-11-29] MEDS: SOD CHLORIDE 0.9% 1,000 ML IV SCH ×2 (00:41→08:41)
[2018-11-29] MEDS: CEFTRIAXONE 1 GM/50 ML (PMX) 50 ML IVPB SCH (00:41)
--- NOTE | 2018-11-29 01:46 | QN ---
Documentation Comment H&P dict a/p 1. gu: hematuria since recent suprapubic change, monitor, hold eliquis (b) ?uti, cont rocephin 2. gi: abdo pain, unclear etiology, await ct and abdo us. cont rocephin, flagyl and vanco 3. cards: a fib, rate controlled, monitor (b) borderline bp, increase ivf, 4. old cva DAWOOD MCKEE MD Nov 29, 2018 01:46
[2018-11-29] MEDS ORDERED: VANCOMYCIN IV PER PHARMACY XX SCH (02:00)
[2018-11-29] MEDS ORDERED: metroNIDAZOLE 500 MG/NS (PMX) 100 ML IVPB SCH (02:00)
[2018-11-29 02:04] VITALS: BP 92/54; PULSE 76; RESP 18
[2018-11-29] MEDS: metroNIDAZOLE 500 MG/NS (PMX) 100 ML IVPB SCH ×3 (02:16→21:31)
[2018-11-29] MEDS ORDERED: VANCOMYCIN HCL 1.25 GM in SOD CHLORIDE 0.9% 250 ML IVPB SCH (03:00)
--- NOTE | 2018-11-29 05:10 | HP ---
DATE OF ADMISSION: 11/28/2018 CHIEF COMPLAINT: Abdominal pain. HISTORY OF PRESENTING ILLNESS: Mr. Atwood was referred to the emergency room at [facility] by his home health nurse. He was making a routinely scheduled visit to [facility] suprapubic cathete r. However he after having the catheter exchanges has been having hematuria since that time and was referred to the emergency room. On arrival here, he is complaining of abdominal pain, but is not abl e to give much in the way of additional history. PAST MEDICAL HISTORY: Significant for: 1. Urinary retention requiring suprapubic catheter. 2. Atrial fibrillation. 3. Old stroke. 4. Hypertension. 5. Hyperlipidemia. MEDICATIONS AN OUTPATIENT: Include: 1. CellCept 250 mg b.i.d. 2. Melatonin 5 mg at nighttime. 3. Folate 1 mg daily. 4. Vitamin D 1000 units daily. 5. Senna 5 mL q.a.m. 6. Omeprazole 20 mg daily. 7. Lactobacillus. 8. Colace. 9. [place] 5/325 one tablet every 6 hours as needed. 10. Celexa 40 mg daily. 11. Wellbutrin 150 mg daily. 12. Lisinopril 20 mg daily. 13. Coreg 3.125 mg b.i.d. 14. Lipitor 40 mg daily. 15. Amiodarone 200 mg daily. 16. Eliquis 5 mg b.i.d. 17. Augmentin. 18. Albuterol. 19. Claritin. ALLERGIES: LISTED PLAVIX. SOCIAL HISTORY: The patient lives at home in [place]. Has the assistance of caregiver. Denies tob acco, alcohol or illicit drug use. FAMILY HISTORY: Noncontributory. REVIEW OF SYSTEMS: Unobtainable secondary to patient's status. PHYSICAL EXAMINATION: VITAL SIGNS: Blood pressure of 102/62, pulse rate 94, respirations 18, temperature is 98.3. GENERAL: Pleasant man in no acute distress, answers questions, but only briefly. HEENT: Normocephalic, atraumatic without evident scleral icterus, perioral cyanosis. Mucous membran es are dry. NECK: Soft and supple without masses. No evidence of jugular venous distention or carotid bruits. CHEST: Clear to auscultation and percussion anteriorly. HEART: Regular rate and rhythm, , no added sounds. ABDOMEN: Soft, tender in all quadrants especially the right upper and right lower. Note is made of a suprapubic catheter. EXTREMITIES: Without clubbing, cyanosis or edema. SKIN: Without rashes. NEUROLOGIC: Grossly intact. LABORATORY STUDIES: Reveal a hemoglobin of 9.3 g/dL, white count 9600, platelets of 330,000. Sodium 136, potassium 5.3, chloride 99, bicarbonate 28, BUN 30, creatinine 1.23, glucose 94. UA shows grea ter than 182 red cells and white cells. ASSESSMENT AND PLAN: 1. Genitourinary: The patient with hematuria related to recent suprapubic catheter exchange. Hold Eliquis. Treat for probable urinary tract infection. I appreciate the assistance of urology. Urina ry retention secondary to prostatic enlargement, plus or minus urinary infection. 2. Gastrointestinal: The patient with right upper and lower quadrant abdominal pain. We will obtai n ultrasound and CT scan to rule out surgical causes of pain. Continue with antibiotics at this time . 3. Cardiac: The patient with atrial fibrillation, rate controlled. Continue amiodarone. Borderlin e blood pressure. We will hold lisinopril and Coreg. Give IV fluids. Old stroke. Dictated By: DAWOOD MCKEE MD RER/NTS Conf#: [id number] DID#: [id number]
[2018-11-29] MEDS ORDERED: PANTOPRAZOLE (EC) 40 MG TAB PO SCH (06:00)
--- NOTE | 2018-11-29 07:57 | CONS ---
Date/Time of Note Date/Time of Note DATE: 11/29/18 TIME: 07:49 Consult Date/Type/Reason Admit Date/Time Nov 28, 2018 at 21:07 Initial Consult Date 11/28/18 Type of Consultation: Urology Reason for Consultation Gross hematuria Requesting Provider: JUDITH PATTERSON MD Subjective Patient is awake and comfortable. He denies any pain. Objective Vital Signs Date Temp Pulse Resp B/P (MAP) Pulse Ox O2 O2 Flow FiO2 Time Delivery Rate 11/29/18 97.6 76 18 92/54 (67) 95 02:04 11/28/18 Room Air 22:29 Intake and Output 11/28/18 11/28/18 11/29/18 1515:00 23:00 07:00 IntakeIntake Total 400.000 ml OutputOutput Total 700 ml BalanceBalance -300.000 ml Exam The suprapubic tube is draining well and the urine is clear yellow. He screams of pain when he is moved. The dressing around the suprapubic tube is intact and dry Results/Medications Result Diagram: 11/29/18 0511 11/29/18 0511 Results 24 hrs Laboratory Tests Test 11/28/18 18:18 11/28/18 20:04 11/29/18 05:11 White Blood Count 9.6 # 8.2 Red Blood Count 3.32 L 3.22 L Hemoglobin 9.3 L 8.9 L Hematocrit 29.1 L 28.7 L Mean Corpuscular Volume 87.7 89.1 Mean Corpuscular Hemoglobin 28.0 L 27.6 L Mean Corpuscular Hemoglobin Concent 32.0 31.0 L Red Cell Distribution Width 17.4 H 17.4 H Platelet Count 330 # 318 Mean Platelet Volume 9.6 9.5 Immature Granulocytes % 0.500 H 0.700 H Neutrophils % 79.2 H 73.2 Lymphocytes % 11.0 L 15.3 Monocytes % 7.7 8.8 Eosinophils % 1.3 1.6 Basophils % 0.3 0.4 Nucleated Red Blood Cells % 0.0 0.0 Immature Granulocytes # 0.050 H 0.060 H Neutrophils # 7.6 H 6.0 Lymphocytes # 1.1 1.3 Monocytes # 0.7 0.7 Eosinophils # 0.1 0.1 Basophils # 0.0 0.0 Nucleated Red Blood Cells # 0.0 0.0 Sodium Level 136 133 L Potassium Level 5.3 H 4.9 Chloride Level 99 99 Carbon Dioxide Level 28 28 Anion Gap 9 6 Blood Urea Nitrogen 30 H 28 H Creatinine 1.23 1.33 H Est Glomerular Filtrat Rate mL/min Glucose Level 94 92 Calcium Level 9.3 9.1 Urine Color RED Urine Clarity CLOUDY A Urine pH 7.0 Urine Specific [place] 1.011 Urine Ketones TRACE A Urine Nitrite NEGATIVE Urine Bilirubin NEGATIVE Urine Urobilinogen NEGATIVE Urine Leukocyte Esterase 1+ H Urine Microscopic RBC > 182 H Urine Microscopic WBC > 182 H Urine Bacteria FEW A Urine Hemoglobin 3+ H Urine Glucose NEGATIVE Urine Total Protein 3+ H Medications Current Medications Ondansetron HCl (Zofran Inj) 4 mg BRIDGE ORDER PRN IV NAUSEA AND/OR VOMITING; Start 11/28/18 at 21:30; Stop 11/29/18 at 21:29 Acetaminophen (Tylenol Tab) 650 mg ER BRIDGE PRN PO MILD PAIN(1-3)OR ELEVATED TEMP; Start 11/28/18 at 21:30; Stop 11/29/18 at 21:29 Ceftriaxone Sodium 50 ml @ 100 mls/hr Q24H IVPB Last administered on 11/29/18at 00:41; Admin Dose 100 MLS/HR; Start 11/29/18 at 00:00 Acetaminophen (Tylenol Tab) 650 mg Q6H PRN PO MILD PAIN(1-3)OR ELEVATED TEMP; Start 11/29/18 at 00:00 Ondansetron HCl (Zofran Inj) 4 mg Q4H PRN IV NAUSEA AND/OR VOMITING; Start 11/29/18 at 00:00 Morphine Sulfate (morphine SULFATE (PF)) 2 mg Q2H PRN IV SEVERE PAIN LEVEL 7- 10; Start 11/29/18 at 00:00 Sodium Chloride 1,000 ml @ 125 mls/hr Q8H IV Last administered on 11/29/18at 00:41; Admin Dose 75 MLS/HR; Start 11/29/18 at 00:00 Amiodarone HCl (Cordarone) 200 mg DAILY PO ; Start 11/29/18 at 09:00 Atorvastatin Calcium (Lipitor) 40 mg QHS PO ; Start 11/29/18 at 21:00 Cholecalciferol (Vitamin D) 1,000 unit DAILY PO ; Start 11/29/18 at 09:00 Citalopram Hydrobromide (Celexa) 40 mg DAILY PO ; Start 11/29/18 at 09:00 Docusate Sodium (Colace Liquid Cup) 50 mg QAM PO ; Start 11/29/18 at 09:00 Folic Acid (Folic Acid) 1 mg DAILY PO ; Start 11/29/18 at 09:00 Loratadine (Claritin) 10 mg DAILY PO ; Start 11/29/18 at 09:00 Mycophenolate Mofetil (Cellcept) 250 mg BID PO ; Start 11/29/18 at 09:00 Lactobacillus Acidophilus/ Rhamnosus (Culturelle) 1 cap DAILY PO ; Start 11/29/18 at 09:00 Pantoprazole (Protonix Tab) 40 mg DAILY@06 PO ; Start 11/29/18 at 06:00 [place] Extract (Senna Syrup) 176 mg DAILY PO ; Start 11/29/18 at 09:00 Vancomycin HCl (Vanco Iv Per Pharmacy) VANCOMYCIN PER PHARMACY PER PROTOCOL XX ; Start 11/29/18 at 02:00 Metronidazole 100 ml @ 100 mls/hr Q8 IVPB Last administered on 11/29/18at 02:16; Admin Dose 100 MLS/HR; Start 11/29/18 at 02:09 Vancomycin/Sodium Chloride 250 ml @ 125 mls/hr Q12H IVPB ; Start 11/29/18 at 16:00 Assessment/Plan Chief Complaint/Hosp Course 83-year-old male well-known to me from before. Has a very large prostate and urinary retention and contractures of the lower extremities. Prior catheterization through his urethra was complicated multiple times by having the balloon of the catheter inflated into the urethra. Therefore it was decided to put the suprapubic tube for him. The suprapubic tube was placed in and I did change it the first time and then had the home health nurse change it for him monthly. It appears the nurse changed it on 11/27/2018 and he was having some bleeding and on 11/28/2018 he was in severe pain so his brought him to the emergency room. I irrigated the catheter but that did not irrigate well, therefore I decided to change the suprapubic tube and as soon as I pulled the tube out urine came out of the bladder. I then inserted a new 22 [place] 10 cc balloon North ,I irrigated the new catheter and the return was blood-tinged. Patient was kept in the hospital for observation. This morning the urine from the suprapubic tube is clear. I ordered a urine culture. Urologically he may be discharged. MARTINA BOOKER MD Nov 29, 2018 07:57
[2018-11-29 08:00] VITALS: BP 103/58; PULSE 73; RESP 17
[2018-11-29] MEDS: morphine SULFATE/PF (2 MG/2 ML) SYG IV PRN ×2 (08:09→16:51)
[2018-11-29] MEDS: LACTOBACILLUS RHAMNOSUS CAP PO SCH (08:53)
[2018-11-29] MEDS: FOLIC ACID 1 MG TAB PO SCH (08:53)
[2018-11-29] MEDS: CITALOPRAM 20 MG TAB PO SCH (08:53)
[2018-11-29] MEDS: CHOLECALCIFEROL 1,000 UNIT TAB PO SCH (08:54)
[2018-11-29] MEDS: LORATADINE 10 MG TAB PO SCH (08:54)
[2018-11-29] MEDS: AMIODARONE 200 MG TAB PO SCH (08:55)
[2018-11-29] MEDS ORDERED: MYCOPHENOLATE 250 MG CAP PO SCH (09:00)
[2018-11-29] MEDS: DOCUSATE SODIUM 10 MG/ML (10ML CUP) PO SCH (09:00)
[2018-11-29] MEDS: SENNA LEAF EXTRACT 176 MG/5 ML SYRUP PO SCH (09:12)
--- NOTE | 2018-11-29 13:30 | PN ---
Date/Time of Note Date/Time of Note DATE: 11/29/18 TIME: 13:11 Assessment/Plan VTE Prophylaxis Risk score (from Ns)>0 risk: 8 SCD applied (from Ns): Yes Pharmacological prophylaxis: NA/contraindicated Pharm contraindication: bleeding (hematuria ) Lines/Catheters IV Catheter Type (from [facility] Peripheral IV Urinary Cath still in place: Yes Reason Cath still needed: urinary retention (suprapubic catheter in place ) Assessment/Plan Assessment/Plan 83-year-old male with: 1. Hematuria, patient had a change of his suprapubic catheter the day previous, appreciate assistance from urology, suprapubic catheter was changed again yesterday, no signs of hematuria currently with good urine flow. Appreciate recommendations from Dr. Trevino, urine culture with gram-negative rods, awaiting final sensitivities for antibiotic adjustment prior to discharge. 2. Gram-negative nikhil UTI, currently on Rocephin. Follow-up final cultures for antibiotic adjustment. Unclear why patient is on Flagyl. Abdominal ultrasound and a CT abdomen pelvis with no acute kidney issues. Discontinue vancomycin 3. 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 Patient had a modified barium swallow followed by an esophagogram on his last admission, it is established that he does have a esophageal spasms and recommendation is for PPI and mechanical soft diet, small portions and nectar thick liquid. 5. Atrial fibrillation, chronic, will clarify with urology if okay to resume Eliquis for anticoagulation. Hematuria resolved so far. Rate controlled, continue current medications. 6. Coronary artery disease, continue current medications, beta-blockers to be resumed if blood pressure tolerates and patient has been taken off antiplatelet given previous episodes of hematuria and the fact that he is on Eliquis in setting of A. fib. 7. Psoriasis. Continue Cellcept for now. Atarax prn for itching. states that patient has a cream that was prescribed for him, she is to bring the medication in so we can use it for the patient while inpatient. 8. GERD: Continue PPIs 9. Congestive heart failure, diastolic dysfunction, EF 60% on echocardiogram 08/2018. Careful with IV fluids, will discontinue IV fluids as of today based on small pleural effusion seen on CAT scan already. Monitor volume status, diuresis if needed. 10. Acute kidney injury, hyperkalemia on admission, known BPH and obstructive uropathy, status post suprapubic catheter placement. Repeat BMP later this afternoon, potassium level already trending down to 4.9. Monitor renal function while treating UTI. D/C vancomycin Prophylaxis: PPI for GI prophylaxis, resuming Eliquis for stroke prophylaxis setting of atrial fibrillation. Disposition: Follow-up on urine cultures, adjust antibiotics, discharge planning will be for home with a 24-hour caregiver per patient's request hopefully in the next 24 hours. Result Diagram: 11/29/1811 11/29/1811 Results 24hrs Laboratory Tests Test 11/28/18 18:18 11/28/18 20:04 11/29/18 05:11 White Blood Count 9.6 # 8.2 Red Blood Count 3.32 L 3.22 L Hemoglobin 9.3 L 8.9 L Hematocrit 29.1 L 28.7 L Mean Corpuscular Volume 87.7 89.1 Mean Corpuscular Hemoglobin 28.0 L 27.6 L Mean Corpuscular Hemoglobin Concent 32.0 31.0 L Red Cell Distribution Width 17.4 H 17.4 H Platelet Count 330 # 318 Mean Platelet Volume 9.6 9.5 Immature Granulocytes % 0.500 H 0.700 H Neutrophils % 79.2 H 73.2 Lymphocytes % 11.0 L 15.3 Monocytes % 7.7 8.8 Eosinophils % 1.3 1.6 Basophils % 0.3 0.4 Nucleated Red Blood Cells % 0.0 0.0 Immature Granulocytes # 0.050 H 0.060 H Neutrophils # 7.6 H 6.0 Lymphocytes # 1.1 1.3 Monocytes # 0.7 0.7 Eosinophils # 0.1 0.1 Basophils # 0.0 0.0 Nucleated Red Blood Cells # 0.0 0.0 Sodium Level 136 133 L Potassium Level 5.3 H 4.9 Chloride Level 99 99 Carbon Dioxide Level 28 28 Anion Gap 9 6 Blood Urea Nitrogen 30 H 28 H Creatinine 1.23 1.33 H Est Glomerular Filtrat Rate mL/min Glucose Level 94 92 Calcium Level 9.3 9.1 Urine Color RED Urine Clarity CLOUDY A Urine pH 7.0 Urine Specific [place] 1.011 Urine Ketones TRACE A Urine Nitrite NEGATIVE Urine Bilirubin NEGATIVE Urine Urobilinogen NEGATIVE Urine Leukocyte Esterase 1+ H Urine Microscopic RBC > 182 H Urine Microscopic WBC > 182 H Urine Bacteria FEW A Urine Hemoglobin 3+ H Urine Glucose NEGATIVE Urine Total Protein 3+ H Subjective 24 Hr Interval Summary Free Text/Dictation Patient is awake and alert, he is at baseline currently, mental status is much clearer. He is on room air. IV fluids have been adjusted. Status post suprapubic catheter change and resolved hematuria as of this morning. Urine culture from yesterday positive with gram-negative rods, antibiotic adjusted. Exam/Review of Systems Vital Signs Vitals Vital Signs Date Temp Pulse Resp B/P (MAP) Pulse Ox O2 O2 Flow FiO2 Time Delivery Rate 11/29/18 98.7 73 17 103/58 92 08:00 (73) 11/28/18 Room Air 22:29 Intake and Output 11/28/18 11/28/18 11/29/18 1515:00 23:00 07:00 IntakeIntake Total 400.000 ml OutputOutput Total 700 ml BalanceBalance -300.000 ml Exam Constitutional: alert, oriented, other (Patient with expressive aphasia [facility].) Respiratory: clear to auscultation, normal air movement Cardiovascular: irregular rhythm (Chronic A. fib.) Gastrointestinal: soft, non-tender Musculoskeletal: nl extremities to inspection Extremities: normal pulses, other (No edema, clubbing or cyanosis) Neurological: MARINE RIGGER II-XII intact, other (Expressive aphasia, some episodes of confusion at times but so far mental status stable. Known mild dysphagia) Medications Medications Current Medications Ceftriaxone Sodium 50 ml @ 100 mls/hr Q24H IVPB Last administered on 11/29/18at 00:41; Admin Dose 100 MLS/HR; Start 11/29/18 at 00:00 Acetaminophen (Tylenol Tab) 650 mg Q6H PRN PO MILD PAIN(1-3)OR ELEVATED TEMP; Start 11/29/18 at 00:00 Ondansetron HCl (Zofran Inj) 4 mg Q4H PRN IV NAUSEA AND/OR VOMITING; Start 11/29/18 at 00:00 Morphine Sulfate (morphine SULFATE (PF)) 2 mg Q2H PRN IV SEVERE PAIN LEVEL 7-10 Last administered on 11/29/18at 08:09; Admin Dose 2 MG; Start 11/29/18 at 00:00 Sodium Chloride 1,000 ml @ 75 mls/hr [id number] IV Last administered on 11/29/18 00:41; Admin Dose 75 MLS/HR; Start 11/29/18 at 00:00 Amiodarone HCl (Cordarone) 200 mg DAILY PO Last administered on 11/29/18 08:55; Admin Dose 200 MG; Start 11/29/18 at 09:00 Atorvastatin Calcium (Lipitor) 40 mg QHS PO ; Start 11/29/18 at 21:00 Cholecalciferol (Vitamin D) 1,000 unit DAILY PO Last administered on 11/29/18 08:54; Admin Dose 1,000 UNIT; Start 11/29/18 at 09:00 Citalopram Hydrobromide (Celexa) 40 mg DAILY PO Last administered on 11/29/18 08:53; Admin Dose 40 MG; Start 11/29/18 at 09:00 Docusate Sodium (Colace Liquid Cup) 50 mg QAM PO ; Start 11/29/18 at 09:00 Folic Acid (Folic Acid) 1 mg DAILY PO Last administered on 11/29/18 08:53; Admin Dose 1 MG; Start 11/29/18 at 09:00 Loratadine (Claritin) 10 mg DAILY PO Last administered on 11/29/18 08:54; A dmin Dose 10 MG; Start 11/29/18 at 09:00 Mycophenolate Mofetil (Cellcept) 250 mg BID PO Last administered on 11/29/18 08:54; Admin Dose 250 MG; Start 11/29/18 at 09:00 Lactobacillus Acidophilus/ Rhamnosus (Culturelle) 1 cap DAILY PO Last administered on 11/29/18 08:53; Admin Dose 1 CAP; Start 11/29/18 at 09:00 [place] Extract (Senna Syrup) 176 mg DAILY PO Last administered on 11/29/18 09:12; Admin Dose 176 MG; Start 11/29/18 at 09:00 Metronidazole 100 ml @ 100 mls/hr Q8 IVPB Last administered on 11/29/18 02:16; Admin Dose 100 MLS/HR; Start 11/29/18 at 02:09 Pantoprazole (Protonix Tab) 40 mg BID@0600,1800 PO ; Start 11/29/18 at 18:00 Imaging Imaging PROCEDURE: CT Abdomen and pelvis without contrast. CLINICAL INDICATION: Right lower quadrant abdominal pain TECHNIQUE: CT scan of the abdomen and pelvis without contrast was performed on a multidetector high-resolution CT scan. . Coronal and sagittal reformatted images were obtained from the axial source images. Standard CT scan of the abdomen pelvis without contrast protocols were performed. The total exam CTDI equals 12.14 mGy and the total exam DLP equals 756.5 mGy-cm. One or more of the following dose reduction techniques were used: - Automated exposure control. - Adjustment of the mA and/or kV according to patient size. Use of iterative reconstruction technique. Dicom images are available COMPARISON: Ultrasound earlier same day. CT abdomen pelvis 09/28/2018 FINDINGS: Again noted is a suprapubic catheter with nondependent air adjacent to the cat heter likely iatrogenic. The urinary bladder is otherwise unremarkable. The kidneys are normal in size without calcified calculi or hydronephrosis bilaterally. No change in the bilateral renal cysts. No evidence ureteral calcified calculi. Moderate dilated left ureter throughout its entire course wi thout obstructing lesion demonstrated unchanged from previous study. Severely enlarged prostate gland. Correlation with PSA levels may be helpful. Again noted are diverticular changes throughout the colon most pronounced proximal descending and distal descending colon without diverticulitis. Moderate stool burden throughout the colon which is otherwise unremarkable. Small hiatal hernia. Stomach otherwise unremarkable. Small bowel unremarkable. Appendix not visualized however no CT evidence of appendicitis. No evidence of intra-abdominal free air, free fluid, abscesses or lymphadenopathy. Cholelithiasis and sludge in otherwise unremarkable gallbladder. No biliary ductal dilation. Normal size liver with superior right lobe and left lobe liver cysts. No other hepatic lesions. Spleen pancreas and adrenal glands unremarkable. Extensive atherosclerotic vascular disease of the aorta and iliac arteries without aneurysm. Coronary artery disease. Tiny fat containing left inguinal and umbilical hernias without herniated hour strangulation. Bilateral small pleural effusions larger on the right. Bibasilar subsegmental atelectasis and parenchymal scarring. Tiny calcified granuloma right lung base. Degenerative changes of the lower thoracic and lumbar spine and both hips wit hout acute osseous findings are osteoblastic/osteolytic lesions. IMPRESSION: 1. No significant change. 2. Suprapubic catheter in good position with nondependent air within the inner bladder likely iatrogenic. 3. No change bilateral renal cysts. No calcified urinary calculi or obstructive uropathy. 4. Severe enlarged prostate gland. Correlation with PSA levels may be helpful. 5. Colonic diverticulosis without CT evidence of diverticulitis. 6. Small hiatal hernia. 7. Liver cysts. 8. Bilateral small pleural effusions larger on the right. Bibasilar subsegmental atelectasis/parenchymal scarring. RPTAT:AAJJ Physician Harmeet Date Time Electronically viewed and signed by Physician Harmeet on 11/29/2018 03:53 Echocardiogram Report Patient Name: DAWOOD TADEO Gender: Male Date: 1935 Study Date: 05-Sep-2018 Lithographic Photographer Apprentice: Alecia [facility] [place] Location: 518-A Ref. Physician: RANJIT CERDA Quality: Adequate Procedures: Transthoracic echocardiogram with complete 2D, M-Mode, and doppler examination. Indications: Elevated Troponin, Hx of CAD. 2D/M Mode Doppler Measurement Value Normal Ranges Measurement Value Normal Ranges LVIDd 2D 2.9 3.5 - 5.6 cm HENRY Vmax 1.5 cm2 LVIDs 2D 2.3 2.1 - 4.1 cm HENRY VTI 1.3 cm2 FS 2D 22.4 % AV Mean [place] 1.6 m/sec LVPWd 2D 1.5 0.6 - 1.1 cm AV Mean PG 11.0 mmHg IVSd 2D 1.5 0.6 - 1.1 cm AV Peak [place] 2.1 m/sec IVS/LVPW 2D 1.0 AV Peak PG 18.0 mmHg AoR Diam 2D 3.1 2.0 - 3.7 cm AV VTI 59.5 cm LA/Ao 2D 1 0 - 1 LVOT Peak [place] 0.9 m/sec EDV 2D 25.4 cm3 LVOT Peak PG 3.0 mmHg ESV 2D 11.9 cm3 MV E Peak [place] 1.0 m/sec LA Dimen 2D 4.5 2.3 - 4.0 cm MV A Peak [place] 0.8 m/sec LVOT Area 3.5 cm2 MV E/A 1.4 MV Decel Time 176 msec MV E/A 1.4 TR Peak [place] 3.1 m/sec TR Peak PG 38.0 mmHg RVSP 46.0 mmHg Findings Left Ventricle: Normal left ventricular systolic function. Normal left ventricular cavity size. Moderate concentric left ventricular hypertrophy. Ejection fraction is visually estimated at 60 %. Tissue Doppler/Mitral Doppler indices are consistent with pseudonormalization with mildly elevated left atrial pressure (Stage II diastolic dysfunction). Right Ventricle: Normal right ventricular size. Normal right ventricular systolic function. Left Atrium: There is mild enlargement of left atrium. Right Atrium: The right atrium is normal in size. Mitral Valve: Mild mitral leaflet calcification. Mild mitral annular calcification. Mild mitral valve regurgitation. Aortic Valve: Aortic sclerosis without significant stenosis. Aortic cusps appear moderately calcified. Trace aortic valve regurgitation. Tricuspid Valve: Normal appearance of the tricuspid valve. Estimated peak PA systolic pressure 46 mmHg. There is mild tricuspid regurgitation. Pulmonic Valve: Normal pulmonic valve appearance. There is trace pulmonic regurgitation. Pericardium: Normal pericardium with no significant pericardial effusion. Aorta: Normal aortic root. IVC: Dilated IVC with respiratory collapse consistent with elevated right atrial pressure. Conclusions Normal left ventricular systolic function. Normal left ventricular cavity size. Moderate concentric left ventricular hypertrophy. Ejection fraction is visually estimated at 60 %. Tissue Doppler/Mitral Doppler indices are consistent with pseudonormalization with mildly elevated left atrial pressure (Stage II diastolic dysfunction). Normal right ventricular size. Normal right ventricular systolic function. There is mild enlargement of left atrium. The right atrium is normal in size. Mild mitral valve regurgitation. Aortic sclerosis without significant stenosis. Trace aortic valve regurgitation. Estimated peak PA systolic pressure 46 mmHg. There is mild tricuspid regurgitation. Normal pericardium with no significant pericardial effusion. Electronically Signed By: Jesus Bergeron 05-Sep-2018 18:09:07 -0700 DOMINIC CERDA Nov 29, 2018 13:22
[2018-11-29 14:34] VITALS: BP 112/69; PULSE 69; RESP 17
[2018-11-29] MEDS ORDERED: VANCOMYCIN 750 MG (PMX) 250 ML IVPB SCH (16:00)
[2018-11-29] MEDS: PANTOPRAZOLE (EC) 40 MG TAB PO SCH (18:16)
[2018-11-29 20:15] VITALS: BP 97/53; PULSE 72; RESP 18
[2018-11-29] MEDS ORDERED: ATORVASTATIN 40 MG TAB PO SCH (21:00)
[2018-11-29] MEDS: MYCOPHENOLATE MOFETIL 250 MG PO SCH (21:04)
[2018-11-29] MEDS: APIXABAN 5 MG TABLET PO SCH (21:04)
[2018-11-30] MEDS: CEFTRIAXONE 1 GM/50 ML (PMX) 50 ML IVPB SCH (00:15)
[2018-11-30 02:00] VITALS: BP 101/57; PULSE 79; RESP 18
[2018-11-30] MEDS ORDERED: VANCOMYCIN 750 MG (PMX) 250 ML IVPB SCH (03:00)
[2018-11-30] MEDS: MYCOPHENOLATE MOFETIL 250 MG PO SCH (05:36)
[2018-11-30] MEDS: metroNIDAZOLE 500 MG/NS (PMX) 100 ML IVPB SCH (05:36)
[2018-11-30] MEDS: PANTOPRAZOLE (EC) 40 MG TAB PO SCH (05:36)
[2018-11-30 07:51] VITALS: BP 110/66; PULSE 73; RESP 16
[2018-11-30] MEDS: DOCUSATE SODIUM 10 MG/ML (10ML CUP) PO SCH (08:20)
[2018-11-30] MEDS: LACTOBACILLUS RHAMNOSUS CAP PO SCH (08:23)
[2018-11-30] MEDS: LORATADINE 10 MG TAB PO SCH (08:23)
[2018-11-30] MEDS: FOLIC ACID 1 MG TAB PO SCH (08:23)
[2018-11-30] MEDS: CHOLECALCIFEROL 1,000 UNIT TAB PO SCH (08:23)
[2018-11-30] MEDS: AMIODARONE 200 MG TAB PO SCH (08:24)
[2018-11-30] MEDS: CITALOPRAM 20 MG TAB PO SCH (08:26)
[2018-11-30] MEDS: APIXABAN 5 MG TABLET PO SCH (08:27)
[2018-11-30] MEDS: SENNA LEAF EXTRACT 176 MG/5 ML SYRUP PO SCH (09:00)
[2018-11-30] MEDS: morphine SULFATE/PF (2 MG/2 ML) SYG IV PRN (10:01)
--- NOTE | 2018-11-30 10:21 | PN ---
Date/Time of Note Date/Time of Note DATE: 11/30/18 TIME: 10:14 Assessment/Plan VTE Prophylaxis Risk score (from Ns)>0 risk: 8 SCD applied (from Ns): Yes Pharmacological prophylaxis: apixaban Lines/Catheters IV Catheter Type (from Nrsg): Peripheral IV Urinary Cath still in place: Yes Reason Cath still needed: urinary retention (Suprapubic catheter in place) Assessment/Plan Assessment/Plan 83-year-old male with: 1. Hematuria, resolved, patient had a change of his suprapubic catheter on 11/28. Appreciate assistance from urology, no signs of hematuria currently with good urine flow. Appreciate recommendations from Dr. Trevino, Urine culture with ESBL E. coli, antibiotic changed to ertapenem. 2. ESBL UTI, antibiotics switched to ertapenem, midline being placed for plan outpatient antibiotics either at home with home health versus residential f acility. 3. 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 Patient had a modified barium swallow followed by an esophagogram on his last admission, it is established that he does have a esophageal spasms and recommendation is for PPI and mechanical soft diet, small portions and nectar thick liquid. 5. Atrial fibrillation, chronic, back on Eliquis for anticoagulation. Hematuria resolved so far and not recurring. Rate controlled, continue current medications. 6. Coronary artery disease, continue current medications. 7. Psoriasis. Continue Cellcept for now. Atarax prn for itching. states th at patient has a cream that was prescribed for him, she is to bring the medication in so we can use it for the patient while inpatient. 8. GERD: Continue PPIs 9. Congestive heart failure, diastolic dysfunction, EF 60% on echocardiogram 08/2018. 10. Acute kidney injury, hyperkalemia on admission, known BPH and obstructive uropathy, status post suprapubic catheter placement. Renal function stable, hyperkalemia resolved. D/C vancomycin Prophylaxis: PPI for GI prophylaxis, resuming Eliquis for stroke prophylaxis setting of atrial fibrillation. Disposition: Patient to remain on contact isolation for MRSA naris and ESBL UTI. Midline to be placed for IV antibiotics as outpatient either at home with home health versus residential facility. If patient to go to residential facility isolation bed will be requested otherwise home with home health and 24- hour caregiver. Result Diagram: 11/30/18 0536 11/30/18 0536 Results 24hrs Laboratory Tests Test 11/29/18 15:58 11/30/18 05:36 Sodium Level 133 L 135 Potassium Level 4.5 4.4 Chloride Level 100 101 Carbon Dioxide Level 25 26 Anion Gap 8 8 Blood Urea Nitrogen 28 H 28 H Creatinine 1.39 H 1.34 H Est Glomerular Filtrat Rate mL/min Glucose Level 148 # 106 # Calcium Level 9.1 9.3 White Blood Count 6.7 Red Blood Count 3.22 L Hemoglobin 9.0 L Hematocrit 28.7 L Mean Corpuscular Volume 89.1 Mean Corpuscular Hemoglobin 28.0 L Mean Corpuscular Hemoglobin Concent 31.4 L Red Cell Distribution Width 17.2 H Platelet Count 276 Mean Platelet Volume 9.6 Immature Granulocytes % 0.800 H Neutrophils % 77.3 H Lymphocytes % 11.1 L Monocytes % 8.1 Eosinophils % 2.4 Basophils % 0.3 Nucleated Red Blood Cells % 0.0 Immature Granulocytes # 0.050 H Neutrophils # 5.1 Lymphocytes # 0.7 L Monocytes # 0.5 Eosinophils # 0.2 Basophils # 0.0 Nucleated Red Blood Cells # 0.0 Magnesium Level 1.8 Subjective 24 Hr Interval Summary Free Text/Dictation Patient remained hemodynamically stable, respiratory status stable. No signs of hematuria with Eliquis resumed yesterday. Urine culture back with nonsignificant colony count of staph aureus which is likely contamination or colonization and significant to urinary tract infection with ESBL E. coli sensitive to carb dependence. Patient will be switched to ertapenem, plan to place a midline and discharge planning to home with home health per 's request versus placement to residential facility on contact isolation. Exam/Review of Systems Vital Signs Vitals Vital Signs Date Temp Pulse Resp B/P (MAP) Pulse Ox O2 O2 Flow FiO2 Time Delivery Rate 11/30/18 97.2 73 16 110/66 97 07:51 (81) 11/29/18 Room Air 14:34 Intake and Output 11/29/18 11/29/18 11/30/18 1515:00 23:00 07:00 IntakeIntake Total 100 ml 500 ml 150 ml OutputOutput Total 600 ml 1300 ml BalanceBalance 100 ml -100 ml -1150 ml Exam Constitutional: alert, oriented (x2), frail, other (Mostly bedbound) Respiratory: clear to auscultation, normal air movement Cardiovascular: irregular rhythm (Chronic atrial fibrillation) Gastrointestinal: soft, non-tender Musculoskeletal: nl extremities to inspection Extremities: normal pulses, other (No edema, clubbing or cyanosis) Neurological: MANAGER TECHNOLOGY II-XII intact, nl mental status (At baseline some confusion), other (Mostly generalized weakness, expressive aphasia chronic, some mild dysphagia chronic.) Medications Medications Current Medications Acetaminophen (Tylenol Tab) 650 mg Q6H PRN PO MILD PAIN(1-3)OR ELEVATED TEMP; Start 11/29/18 at 00:00 Ondansetron HCl (Zofran Inj) 4 mg Q4H PRN IV NAUSEA AND/OR VOMITING; Start 11/29/18 at 00:00 Morphine Sulfate (morphine SULFATE (PF)) 2 mg Q2H PRN IV SEVERE PAIN LEVEL 7-10 Last administered on 11/30/18 10:01; Admin Dose 2 MG; Start 11/29/18 at 00:00 Amiodarone HCl (Cordarone) 200 mg DAILY PO Last administered on 11/30/18 08:24; Admin Dose 200 MG; Start 11/29/18 at 09:00 Atorvastatin Calcium (Lipitor) 40 mg QHS PO Last administered on 11/29/18 21:04; Admin Dose 40 MG; Start 11/29/18 at 21:00 Cholecalciferol (Vitamin D) 1,000 unit DAILY PO Last administered on 11/30/18 08:23; Admin Dose 1,000 UNIT; Start 11/29/18 at 09:00 Citalopram Hydrobromide (Celexa) 40 mg DAILY PO Last administered on 11/30/18 08:26; Admin Dose 40 MG; Start 11/29/18 at 09:00 Docusate Sodium (Colace Liquid Cup) 50 mg QAM PO Last administered on 11/30/18 08:20; Admin Dose 50 MG; Start 11/29/18 at 09:00 Folic Acid (Folic Acid) 1 mg DAILY PO Last administered on 11/30/18 08:23; Admin Dose 1 MG; Start 11/29/18 at 09:00 Loratadine (Claritin) 10 mg DAILY PO Last administered on 11/30/18 08:23; Admin Dose 10 MG; Start 11/29/18 at 09:00 Lactobacillus Acidophilus/ Rhamnosus (Culturelle) 1 cap DAILY PO Last administered on 11/30/18at 08:23; Admin Dose 1 CAP; Start 11/29/18 at 09:00 [place] Extract (Senna Syrup) 176 mg DAILY PO Last administered on 11/29/18at 09:12; Admin Dose 176 MG; Start 11/29/18 at 09:00 Pantoprazole (Protonix Tab) 40 mg BID@0600,1800 PO Last administered on 11/30/18at 05:36; Admin Dose 40 MG; Start 11/29/18 at 18:00 Apixaban (Eliquis) 5 mg BID PO Last administered on 11/30/18at 08:27; Admin Dose 5 MG; Start 11/29/18 at 21:00 Patient Own Medication 1 ea 0630,2100 PO Last administered on 11/30/18at 05:36; Admin Dose 1 EA; Start 11/29/18 at 21:00 Ertapenem 1 gm/ Sodium Chloride 100 ml @ 200 mls/hr Q24H IVPB ; Start 11/30/18 at 10:00; Status UNV Mupirocin (Bactroban) 1 applic BID TOP ; Start 11/30/18 at 10:00; Status UNV DOMINIC CERDA Nov 30, 2018 10:21
[2018-11-30] MEDS ORDERED: ERTAPENEM SODIUM 1 GM in SOD CHLORIDE 0.9% 100 ML IVPB SCH (12:00)
[2018-11-30] MEDS ORDERED: MUPIROCIN 2% 22 GM OINT TOP SCH (12:00)
--- NOTE | 2018-11-30 12:44 | PDOCDIS ---
Discharge Instructions CONDITION [id number] Patient Condition: [id number] Stable HOME CARE INSTRUCTIONS: [id number] Special Diet: [id number] Mechanical soft ACTIVITY: [id number] Activity Restrictions: [id number] Slowly Increase Activity FOLLOW UP/APPOINTMENTS Follow-up Plan Follow-up with Dr. Trevino as an outpatient within 2-4 weeks, patient with a suprapubic catheter. Follow-up with home health RN regarding care for suprapubic catheter Follow-up with home health RN and home health services regarding IV antibiotics, patient will require Invanz 1 g IV every 24 hours for 13 more days. Follow-up with cardiology as an outpatient within 2-4 weeks regarding chronic at rial fibrillation Follow-up with primary care physician within 1-2 weeks Home health PT DOMINIC CERDA Nov 30, 2018 12:44
[2018-11-30] MEDS ORDERED: MUPI22OI2 TOP (12:48)
[2018-11-30] MEDS ORDERED: ERTA1VIA IV (12:48)
[2018-11-30] MEDS ORDERED: LACT1CAP47 PO (12:48)
[2018-11-30 14:25] VITALS: BP 115/58; PULSE 72; RESP 18
--- NOTE | 2018-12-01 10:08 | DS ---
Date/Time of Note Date/Time of Note DATE: 12/01/18 TIME: 10:01 Discharge Summary Admission/Discharge Info Admit Date/Time Nov 28, 2018 at 21:07 Discharge Date/Time Nov 30, 2018 at 17:03 Discharge Diagnosis 1. Hematuria, resolved 2. E coli ESBL UTI 3. 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 5. Atrial fibrillation, chronic. 6. Coronary artery disease. 7. Psoriasis. 8. GERD. 9. Congestive heart failure, diastolic dysfunction, EF 60%. 10. Acute kidney injury. resolved 11. Chronic urinary retention, status post suprapubic catheter. Patient Condition: Stable Consults Urology, Dr. Trevino Procedures Replacement of suprapubic catheter Hx of Present Illness Mr. Atwood was referred to the emergency room at [facility] by his home health nurse. He was making a routinely scheduled visit to exchanges suprapubic catheter. However he after having the catheter exchanges has been having hematuria since that time and was referred to the emergency room. On arrival here, he is complaining of abdominal pain, but is not able to give much in the way of additional history. Hospital Course Patient had replacement of his suprapubic catheter in the emergency department by urology, Dr. Trevino. He was admitted to the medical floor for observation and monitoring. On hospital day #2, no further hematuria was noted, urine culture was growing gram-negative rods, patient was maintained on Rocephin and vancomycin was discontinued. By hospital day #3, urine culture came back finalized as E. coli ESBL, antibiotics were switched to ertapenem and midline placed for outpatient antibiotic treatment. He needs a total of 14 days since this is considered a complicated urinary tract infection. Hematuria resolved therefore patient was started on Eliquis on hospital day #2 and no further bleeding observed by hospital day #3. Hemoglobin is stable. After discussion with the patient's , she insisted on taking the patient home and later on during the day, she insisted on transporting the patient herself because she was unwilling to pay a co-pay of $200 for ambulance transfer. She has 24-hour caregiving arranged. Home health was ordered for IV antibiotics and home health PT. Home Meds Active Scripts Mupirocin* (Bactroban*) 2% -22 Gram Oint...g., 1 APPLIC TOP BID for 14 Days Prov:DOMINIC CERDA 11/30/18 Ertapenem Sodium (Invanz) 1 Gm Vial.port, 1 GM IV Q24H for 13 Days Next outpatient dose due 12/01/18 Prov:DOMINIC CERDA 11/30/18 Lactobacillus Acidophilus (Probiotic) 1 Each Capsule, 1 CAP PO BID for 30 Days, CAP Prov:DOMINIC CERDA 11/30/18 Reported Medications Mycophenolate Mofetil* (Cellcept*) 250 Mg Capsule, 250 MG PO BID, CAP 08/30/18 Albuterol Sulfate* (Albuterol Sulfate* Neb) 0.083%-3 Ml Neb, 2.5 MG NEB BID PRN for WHEEZING AND SOB, #30 VIAL 08/30/18 Folic Acid* (Folic Acid*) 1 Mg Tablet, 1 MG PO DAILY, TAB 06/08/18 Cholecalciferol* (Vitamin D3*) 1,000 Unit Tablet, 1000 UNIT PO DAILY, TAB 06/08/18 Bupropion Hcl* (Wellbutrin XL*) 150 Mg Tab.sr.24h, 150 MG PO NEEDED, TAB.SA 06/08/18 Melatonin (Melatonin) 5 Mg Tab.ir.er, 5 MG PO QHS 06/08/18 Sennosides* (Senna* Liq) 8.8 Mg/5 Ml Syrup, 5 ML PO QAM, BOTTLE 06/08/18 Docusate Sodium* (Docusate Sodium* Liq) 50 Mg/5 Ml Liquid, 50 MG PO QAM, ML 06/08/18 Hydrocodone/Acetaminophen ([place] 5-325 Tablet) 1 Each Tablet, 1 EACH PO NEEDED, TAB 06/08/18 Loratadine* (Loratadine*) 10 Mg Tablet, 10 MG PO DAILY, #30 TAB 06/08/18 Atorvastatin* (Atorvastatin*) 40 Mg Tablet, 40 MG PO QHS, #30 TAB 06/08/18 Apixaban* (Eliquis*) 5 Mg Tablet, 5 MG PO BID, TAB 06/08/18 Carvedilol* (Carvedilol*) 3.125 Mg Tablet, 3.125 MG PO BID, #60 TAB HOLD PULSE<60 06/08/18 Amiodarone Hcl* (Amiodarone Hcl*) 200 Mg Tablet, 200 MG PO DAILY, #30 TAB 06/08/18 Citalopram Hydrobromide* (Citalopram Hydrobromide*) 40 Mg Tablet, 40 MG PO DAILY, #30 TAB 06/08/18 Omeprazole* (Omeprazole*) 20 Mg Capsule.dr, 20 MG PO DAILY, #30 CAP 06/08/18 Discontinued Reported Medications Hydromorphone Hcl (Dilaudid) 2 Mg Tab, 2 MG PO DAILY PRN for SEVERE PAIN LEVEL 7-10 08/30/18 Lisinopril* (Lisinopril*) 20 Mg Tablet, 20 MG PO DAILY, #30 TAB 08/30/18 Discontinued Scripts Amoxicillin/Potassium Clav (Amox-Clav 875-125 mg Tablet) 875-125 mg Tab, 875 MG PO BID for 9 Days, #18 TAB Prov:AKSHAT SELF MD 09/29/18 Follow-up Plan Follow-up with Dr. Trevino as an outpatient within 2-4 weeks, patient with a suprapubic catheter. Follow-up with home health RN regarding care for suprapubic catheter Follow-up with home health RN and home health services regarding IV antibiotics, patient will require Invanz 1 g IV every 24 hours for 13 more days. Follow-up with cardiology as an outpatient within 2-4 weeks regarding chronic atrial fibrillation Follow-up with primary care physician within 1-2 weeks Home health PT Primary Care Provider Not On Staff Doctor Time spent on discharge: > 30 minutes DOMINIC CERDA Dec 01, 2018 10:08
== END 2018-11-30 17:03 | disposition home or self-care (01) ==
LOC: E/R 17:56 → PP2 21:07
PROVIDERS: ADMIT Legal Medicine; ATTEND Legal Medicine
DX: R31.0 Gross hematuria (principal); N39.0 Urinary tract infection, site not specified; Z16.12 Extended spectrum beta lactamase (ESBL) resistance; B96.20 Unspecified Escherichia coli [E. coli] as the cause of diseases classified elsewhere; I48.2 Chronic atrial fibrillation; Z79.01 Long term (current) use of anticoagulants; I25.10 Atherosclerotic heart disease of native coronary artery without angina pectoris; Z95.1 Presence of aortocoronary bypass graft; E78.5 Hyperlipidemia, unspecified; I69.391 Dysphagia following cerebral infarction; I69.322 Dysarthria following cerebral infarction; R13.10 Dysphagia, unspecified; L40.9 Psoriasis, unspecified; K21.9 Gastro-esophageal reflux disease without esophagitis; N17.9 Acute kidney failure, unspecified; R33.9 Retention of urine, unspecified; I50.30 Unspecified diastolic (congestive) heart failure
CPT/HCPCS: 36415; 74176; 76705; 80048; 81001; 83735; 85025; 87081; 87086; 96374; 96376; 99285; G0378; J0696; J1335; J2274; J3010; J3370; J7030; J7050; J7517

== ENCOUNTER 2018-12-12 09:28 | Emergency (ER) | payer OTHER ==
[~2018-12-12] VITALS: Ht 172.7 cm; Wt 58.0 kg
[~2018-12-12 09:28] MED LIST changes: -AMOX1TAB10 PO; +ERTA1VIA IV; -HYDR2TAB3 PO; -LISI-471 PO; +MUPI22OI2 TOP
[2018-12-12 09:39] VITALS: Ht 172.7 cm; Wt 58.0 kg
[2018-12-12] MEDS ORDERED: ONDANSETRON 4 MG INJ IV STA (10:21)
[2018-12-12] MEDS ORDERED: HYDROmorphONE 1 MG/ML SYG IV STA (10:21)
--- NOTE | 2018-12-12 13:48 | ERD ---
ER Documentation Chief Complaint Chief Complaint PT BIB AMBULANCE DUE TO RIGHT LEG PAIN, ONSET THIS AM HPI This is a 83-year-old male with a prior history of stroke who was seen here recently with a suprapubic catheter change resulting in a multidrug-resistant urinary tract infection requiring IV antibiotics at home. The patient has 2 or 3 more doses left of this but he actually pulled out his PICC line this morning. The patient is here with his who is telling me that he has been complaining of right leg pain for the past 2 days. The patient's leg is stuck with his knee bent at 90 degrees and his leg in flexion at the hip. He is complaining of severe pain with any range of motion of his leg. No chest pain or shortness of breath or fever. The patient said his urine was clearing up but now he is having some gross hematuria from his suprapubic catheter though mild ROS All systems reviewed and are negative except as per history of present illness. Medications Home Meds Active Scripts Mupirocin* (Bactroban*) 2% -22 Gram Oint...g., 1 APPLIC TOP BID for 14 Days Prov:DOMINIC CERDA 11/30/18 Ertapenem Sodium (Invanz) 1 Gm Vial.port, 1 GM IV Q24H for 13 Days Next outpatient dose due 12/01/18 Prov:DOMINIC CERDA 11/30/18 Lactobacillus Acidophilus (Probiotic) 1 Each Capsule, 1 CAP PO BID for 30 Days, CAP Prov:DOMINIC CERDA 11/30/18 Reported Medications Mycophenolate Mofetil* (Cellcept*) 250 Mg Capsule, 250 MG PO BID, CAP 08/30/18 Albuterol Sulfate* (Albuterol Sulfate* Neb) 0.083%-3 Ml Neb, 2.5 MG NEB BID PRN for WHEEZING AND SOB, #30 VIAL 08/30/18 Folic Acid* (Folic Acid*) 1 Mg Tablet, 1 MG PO DAILY, TAB 06/08/18 Cholecalciferol* (Vitamin D3*) 1,000 Unit Tablet, 1000 UNIT PO DAILY, TAB 06/08/18 Bupropion Hcl* (Wellbutrin XL*) 150 Mg Tab.sr.24h, 150 MG PO NEEDED, TAB.SA 06/08/18 Melatonin (Melatonin) 5 Mg Tab.ir.er, 5 MG PO QHS 06/08/18 Sennosides* (Senna* Liq) 8.8 Mg/5 Ml Syrup, 5 ML PO QAM, BOTTLE 06/08/18 Docusate Sodium* (Docusate Sodium* Liq) 50 Mg/5 Ml Liquid, 50 MG PO QAM, ML 06/08/18 Hydrocodone/Acetaminophen ([place] 5-325 Tablet) 1 Each Tablet, 1 EACH PO NEEDED, TAB 06/08/18 Loratadine* (Loratadine*) 10 Mg Tablet, 10 MG PO DAILY, #30 TAB 06/08/18 Atorvastatin* (Atorvastatin*) 40 Mg Tablet, 40 MG PO QHS, #30 TAB 06/08/18 Apixaban* (Eliquis*) 5 Mg Tablet, 5 MG PO BID, TAB 06/08/18 Carvedilol* (Carvedilol*) 3.125 Mg Tablet, 3.125 MG PO BID, #60 TAB HOLD PULSE<60 06/08/18 Amiodarone Hcl* (Amiodarone Hcl*) 200 Mg Tablet, 200 MG PO DAILY, #30 TAB 06/08/18 Citalopram Hydrobromide* (Citalopram Hydrobromide*) 40 Mg Tablet, 40 MG PO DAILY, #30 TAB 06/08/18 Omeprazole* (Omeprazole*) 20 Mg Capsule.dr, 20 MG PO DAILY, #30 CAP 06/08/18 Allergies Allergies: Coded Allergies: clopidogrel (Unverified Allergy, Mild, 12/12/18) PMhx/Soc History of Surgery: Yes (bypass sx, CABG) Anesthesia Reaction: No Hx Neurological Disorder: Yes (CVA) Hx Respiratory Disorders: No Hx Cardiac Disorders: Yes (Afib, HTN) Hx Psychiatric Problems: No Hx Miscellaneous Medical Probl: No Hx Alcohol Use: No Hx Substance Use: No Hx Tobacco Use: No Smoking Status: Former smoker FmHx Family History: No coronary disease Physical Exam Vitals Vital Signs Date Temp Pulse Resp B/P (MAP) Pulse Ox O2 O2 Flow FiO2 Time Delivery Rate 12/12/18 73 18 106/69 97 Nasal 2.0 13:47 (81) Cannula 12/12/18 103 18 117/68 100 12:28 (84) 12/12/18 97.6 69 18 108/63 95 09:39 (78) Physical Exam Const: Well-developed, well-nourished Head: Atraumatic, normocephalic Eyes: Normal Conjunctiva, PERRLA, EOMI, normal sclera, no nystagmus ENT: Normal External Ears, Nose and Mouth, moist mucus membranes. Neck: Full range of motion. No meningismus, no lymphadenopathy. Resp: Clear to auscultation bilaterally, no wheezing, rhonchi, rales Cardio: Regular rate and rhythm, no murmurs, S1 S2 present Abd: Soft, non tender x 4, non distended. Normal bowel sounds, no guarding or rebound, no pulsitile abdominal masses or bruits Skin: No petechiae or rashes, no ecchymosis , no maculopapular rash Back: No midline or flank tenderness Ext: No cyanosis, or edema, FROM x 3, the right knee is held in 90 degrees flexion and the hip is at flexion also and it is externally rotated. Any attempt to try to straighten out his knee results in a lot of pain in the abductors of the thigh the patient starts to scream. His limited range of motion of the right hip and right knee there is no erythema or swelling he does appear to have osteoarthritic looking, normal inspection, neurovascularly intact x 4 Neur: Awake and alert, STR 5/5 x 4, sensation intact x 4, no focal findings, cerebellum intact Psych: Normal Mood and Affect Result Diagram: 12/12/18 1047 12/12/18 1047 Results 24 hrs Laboratory Tests Test 12/12/18 10:47 12/12/18 10:49 White Blood Count 5.9 10^3/ul Red Blood Count 3.23 10^6/ul Hemoglobin 8.9 g/dl Hematocrit 28.5 % Mean Corpuscular Volume 88.2 fl Mean Corpuscular Hemoglobin 27.6 pg Mean Corpuscular Hemoglobin Concent 31.2 g/dl Red Cell Distribution Width 16.6 % Platelet Count 240 10^3/UL Mean Platelet Volume 9.5 fl Immature Granulocytes % 0.300 % Neutrophils % 73.9 % Lymphocytes % 13.0 % Monocytes % 9.6 % Eosinophils % 2.7 % Basophils % 0.5 % Nucleated Red Blood Cells % 0.0 /100WBC Immature Granulocytes # 0.020 10^3/ul Neutrophils # 4.3 10^3/ul Lymphocytes # 0.8 10^3/ul Monocytes # 0.6 10^3/ul Eosinophils # 0.2 10^3/ul Basophils # 0.0 10^3/ul Nucleated Red Blood Cells # 0.0 10^3/ul Sodium Level 138 mmol/L Potassium Level 4.3 mmol/L Chloride Level 101 mmol/L Carbon Dioxide Level 27 mmol/L Anion Gap 10 Blood Urea Nitrogen 25 mg/dl Creatinine 1.07 mg/dl Est Glomerular Filtrat Rate mL/min mL/min Glucose Level 101 mg/dl Calcium Level 9.3 mg/dl Total Bilirubin 0.3 mg/dl Direct Bilirubin 0.00 mg/dl Indirect Bilirubin 0.3 mg/dl Aspartate Amino Transf (AST/SGOT) 21 IU/L Alanine Aminotransferase (ALT/SGPT) 17 IU/L Alkaline Phosphatase 129 IU/L Troponin I 0.043 ng/ml C-Reactive Protein 1.1 mg/dl Total Protein 7.1 g/dl Albumin 3.5 g/dl Globulin 3.60 g/dl Albumin/Globulin Ratio 0.97 Urine Color YELLOW Urine Clarity CLOUDY Urine pH 7.0 Urine Specific [place] 1.017 Urine Ketones NEGATIVE mg/dL Urine Nitrite NEGATIVE mg/dL Urine Bilirubin NEGATIVE mg/dL Urine Urobilinogen NEGATIVE mg/dL Urine Leukocyte Esterase TRACE Priti/ul Urine Microscopic RBC > 182 /HPF Urine Microscopic WBC 28 /HPF Urine Amorphous Crystals FEW /HPF Urine Bacteria FEW /HPF Urine Mucus FEW /HPF Urine Hemoglobin 3+ mg/dL Urine Glucose NEGATIVE mg/dL Urine Total Protein 2+ mg/dl Current Medications Medications Dose Sig/Elías Start Time Status Last (Trade) Ordered Route PRN Stop Time Admin Dose Reason Admin 1 mg ONCE STAT 12/12/18 DC 12/12/18 Hydromorphone IV 10:21 10:34 HCl 12/12/18 10:27 (Dilaudid) Ondansetron 4 mg ONCE STAT 12/12/18 DC 12/12/18 HCl (Zofran IV 10:21 10:33 Inj) 12/12/18 10:27 Procedures/MDM MR #: [id number] DOS: 12/12/18 1220 Ordering MD: JEFFRY SORIA DO Location: E/R Room/Bed: PROCEDURE: CT of the right hip without contrast CLINICAL INDICATION: Right hip fracture. TECHNIQUE: CT scan of the pelvis/right hip was performed . No IV contrast was administered. Coronal and sagittal reformatted images were obtained from the axial source images. Images were reviewed on a high-resolution PACS workstation. The calculated radiation dose measures 238.78 mGy centimeters. The CTDI measures 7.05 mGy. One or more of the following dose reduction techniques were used: - Automated exposure control. - Adjustment of the mA and/or kV according to patient size . - Use of iterative reconstruction technique. - DICOM images are available. COMPARISON: DR HUERTA 12/12/2018 FINDINGS: Osseous structures: There is no acute osseous abnormality or evidence of fracture. Severe bilateral hip arthrosis seen with joint space narrowing, subchondral sclerosis and marginal osteophyte formation. There is fusion of the SI joints. Partially assessed, advanced degenerative disc disease at the lower lumbar spine. Soft tissues: The muscles about the pelvis appear grossly symmetric and intact. The prostate is markedly enlarged. A North catheter. IMPRESSION: 1. No acute osseous abnormality or CT evidence of fracture. 2. Severe bilateral hip arthrosis. 3. Markedly enlarged prostate, to be correlated PSA and physical exam. RPTAT: PP .Marcos Boyle MD, MD Date Time Electronically viewed and signed by .Marcos Boyle MD, MD on 12/12/2018 13:09 .d/ CC: JEFFRY SORIA DO [id number] Patient: DAWOOD TADEO : 1935 Age: 83 Sex: M MR #: [id number] DOS: 12/12/18 1111 Ordering MD: JEFFRY SORIA DO Location: E/R Room/Bed: PROCEDURE: US Lower extremity Venous. CLINICAL INDICATION: Right leg edema, pain TECHNIQUE: Multiple sonographic images of the right lower extremity deep venous system was obtained utilizing grayscale, color-flow, compressive sonography and doppler imaging with augmentation. The images were reviewed on a PACS workstation. COMPARISON: None. FINDINGS: There is normal compressibility and flow within the right common femoral, femoral, posterior tibial, peroneal veins. The right popliteal vein is not visualized due to the patient's contracted legs. RPTAT: AA IMPRESSION: No gross sonographic evidence for deep venous thrombosis. Right popliteal vein could not be visualized due to the patient's contracted legs. .Jackson Randle MD, MD Date Time Electronically viewed and signed by .Jackson Randle MD, MD on 12/12/2018 11:49 .S/ CC: JEFFRY SORIA DO [id number] MR #: [id number] DOS: 12/12/18 1021 Ordering MD: JEFFRY SORIA DO Location: E/R Room/Bed: PROCEDURE: XR Chest. CLINICAL INDICATION: Chest pain TECHNIQUE: Single portable view of the chest was obtained COMPARISON: SD CR CHEST 07/05/2018; CR CHEST 07/19/2017; CR CHEST 07/18/2017 FINDINGS: The trachea is midline. The cardiac silhouette and pulmonary vascularity are within normal limits. The lungs are clear. The costophrenic angles are sharp. Status post mediastinotomy and CABG. There is atherosclerotic calcification of the aortic knob. IMPRESSION: 1. Cardiomegaly and atherosclerotic disease. 2. Mediastinal postsurgical changes. 3. No evidence of acute cardiopulmonary disease. RPTAT: AAPP Physician Jerri Date Time Electronically viewed and signed by Physician Jerri on 12/12/2018 11:48 JL/ CC: JEFFRY SORIA DO [id number] Ordering MD: JEFFRY SORIA DO Location: E/R Room/Bed: PROCEDURE: RIGHT femur x-ray CLINICAL INDICATION: Right leg pain TECHNIQUE: AP and lateral views of the femur were obtained. COMPARISON: None FINDINGS: There is normal mineralization. Minimal cortical irregularity about the lesser trochanter. Severe degeneration of the hip manifest as joint space narrowing, subchondral sclerosis and marginal productive change. Vascular calcifications noted Clips about the right hip. IMPRESSION: Severe osteoarthrosis of the right hip. Mild cortical irregularity of the lesser trochanter may reflect nondisplaced fracture. Further evaluation with CT may be obtained if clinically indicated. RPTAT: PP Physician Abel Date Time Electronically viewed and signed by Cuong Woods Physician on 12/12/2018 12:09 ME/ CC: JEFFRY SORIA DO [id number] Patient: DAWOOD TADEO : 1935 Age: 83 Sex: M MR #: [id number] DOS: 12/12/18 1021 Ordering MD: JEFFRY SORIA DO Location: E/R Room/Bed: PROCEDURE: Right hip series CLINICAL INDICATION: Pain status post trauma TECHNIQUE: AP and frog-leg lateral right hip series COMPARISON: None available FINDINGS: No acute fractures or dislocations are noted. Severe joint space narrowing with sclerosis is noted of the right hip joint. Postsurgical changes are noted in the right hip and groin. Subchondral cysts are noted in the right femoral head and acetabulum. Mild vascular calcifications are present. IMPRESSION: 1. Severe right hip osteoarthritis without acute fractures or dislocations. 2. Mild atherosclerotic vascular disease 3. Postsurgical changes in the right hip and groin RPTAT: HDC .Jesica Harvey MD, MD Date Time Electronically viewed and signed by .Jesica Harvey MD, MD on 12/12/2018 11:40 .C/ CC: JEFFRY SORIA DO [id number] EKG: Rate/Rhythm: Normal sinus rhythm with right axis deviation QRS, ST, QT: NORMAL ME, QRS, QT] Impression: Abnormal EKG The patient was admitted to the hospital because of pulling out his PICC line requiring more intravenous antibiotics for his UTI and he does still have a UTI on his urinalysis today however suprapubic catheter is extending to show this way in and not that abnormal. However he does need to finish his course. The right leg does not appear to be a septic joint however it is stuck in an abnormal position and may need to see orthopedics and possibly needs some type of conscious sedation with manual straightening of the leg We will page Dr. davis Spoke with Dr. davis, he does not want to admit the patient. He will have the patient get his last 2 or 3 days of antibiotics Via [facility]-Lock flush that he will arrange patient has 24-hour home care and he will arrange for a nurse to come given antibiotics. He also told me he is going to arrange for orthopedic evaluation for his right leg which is likely a contracture Spoke with the at length. Going to try to get forensic social worker to evaluate him to try to transfer them directly from the ER to some type of nursing home facility stepdown/rehab/nursing facility. If very successful will do this if not off the discharge the patient home and have the contact the primary care physician to set this up as outpatient Departure Diagnosis: Primary Impression: Urinary tract infection Urinary tract infection type: acute cystitis Hematuria presence: with jeovanny turia Qualified Codes: N30.01 - Acute cystitis with hematuria Additional Impressions: Pain in right leg Gravely disabled Condition: Stable JEFFRY SORIA DO Dec 12, 2018 13:48
[2018-12-12 21:22] VITALS: BP 114/66; PULSE 77; RESP 15
== END 2018-12-12 21:23 | disposition home or self-care (01) ==
LOC: E/R 09:28
DX: N30.01 Acute cystitis with hematuria (principal); I10 Essential (primary) hypertension; F78 Other intellectual disabilities; Z86.73 Personal history of transient ischemic attack (TIA), and cerebral infarction without residual deficits; Z95.1 Presence of aortocoronary bypass graft
CPT/HCPCS: 71045; 73510; 73550; 73700; 80053; 81001; 84484; 85025; 86140; 93971; J1170; J2405; 36415; 73501; 93005; 96374; 96375